=== PATIENT | male | born 1950 | race Caucasian/White ===

== ENCOUNTER 2020-04-15 10:47 | Emergency (ER) | payer MEDICARE, OTHER, SELFPAY ==
--- NOTE | ~2020-04-15 | XR_ITS ---
EXAMINATION: XR chest 2V 04/15/2020 11:39 INDICATION: Chest pain PROCEDURE: 2 view chest COMPARISON: No prior studies for comparison FINDINGS: The lungs are clear. The cardiomediastinal silhouette is within normal limits. There are no pleural effusions. There is no pneumothorax suspected. IMPRESSION: 1: NO ACUTE CARDIOPULMONARY DISEASE. Reviewed, dictated and finalized at location B. RANS ADVISER
[2020-04-15 10:59] VITALS: BP 186/73; PULSE 108; RESP 18; TEMP 36.1; O2SAT 100
--- NOTE | 2020-04-15 10:59 | ECG_ITS ---
Measurements Intervals [place] Rate: 96 P: 65 NE: 135 QRS: 70 QRSD: 90 T: 45 QT: 354 QTc: 449 Interpretive Statements SINUS RHYTHM WITH SINUS ARRHYTHMIA BASELINE ARTIFACT- V1 NORMAL ECG Electronically Signed On 04-15-2020 11:48:45 CERTIFIER by Hank Hines D.O.
[2020-04-15 11:06] LABS: Basophils Absolute Auto 0.1 K/mm3 (0.0-0.1); Basophils Percent Auto 1.2 % (0.2-1.2); Eosinophils Absolute Auto 0.2 K/mm3 (0-0.3); Hematocrit 44.1 % (42.0-52.0); Hemoglobin 15.2 g/dL (14.0-18.0); Immature Granulocyte Absolute 0.03 K/mm3 (0.00-0.031); Immature Granulocyte Percent A 0.5 % (0-0.5); Lymphocytes Absolute Auto 1.87 K/mm3 (0.9-3.2); Lymphocytes Percent Auto 31.5 % (18.3-44.2); Mean Corpuscular HGB Conc 34.5 g/dl (32-36); Mean Corpuscular Hemoglobin 33.3 pg (26-34); Mean Corpuscular Volume 96.5 fl (80-100); Mean Platelet Volume 11.2 fl (7.4-10.4); Monocytes Absolute Auto 0.5 K/mm3 (0.1-0.6); Monocytes Percent Auto 8.9 % (2.6-8.5); Neutrophils Absolute Auto 3.3 K/mm3 (1.3-6.7); Neutrophils Percent Auto 54.9 % (45.5-73.1); Platelet Count Result 223 k/mm3 (150-375); Red Blood Count 4.57 M/mm3 (4.6-6.20); Red Cell Distribution Width 13.2 % (11.5-14.5); White Blood Count 5.9 K/mm3 (4.5-10.0)
[2020-04-15] MEDS: ASPIRIN 81 MG CHEWABLE TABLET 324 MG PO (11:12)
[2020-04-15 11:17] LABS: Partial Thromboplastin Time 28.5 SECONDS (22.3-36.8)
[2020-04-15 11:26] LABS: Prothrombin Time 13.8 Seconds (11.1-14.7)
[2020-04-15 11:33] LABS: Anion Gap 6 mmol/L (8-16); Blood Urea Nitrogen 13 mg/dL (9-20); Carbon Dioxide 29 mmol/L (22-30); Chloride 106 mmol/L (98-107); Estimated CRCL calculation 104 ml/min; Estimated Glomerular Filt Rate > 60; Glucose 118 mg/dL (75-110); Sodium 141 mmol/L (137-145)
[2020-04-15 11:44] LABS: Troponin I < 0.012 ng/mL (0.000-0.034)
[2020-04-15] MEDS: KETOROLAC 30 MG/ML VIAL (*BKC) IV PUSH (11:55)
[2020-04-15 12:09] LABS: D Dimer 0.37 ug/mL (<0.48)
[2020-04-15 12:13] LABS: Alanine Aminotransferase 31 U/L (4-50); Albumin Level 4.2 g/dL (3.5-5.1); Alkaline Phosphatase 66 U/L (38-126); Aspartate Amino Transferase 32 U/L (17-59); Bilirubin,Total 0.5 mg/dL (0.2-1.3); Lipase 119 U/L (23-300)
--- NOTE | 2020-04-15 12:28 | ED.CHESTPAIN ---
HPI - Chest Pain General Chief Complaint: Chest Pain Stated Complaint: Chest Pain Time Seen by Provider: 04/15/20 11:21 Source: patient Mode of arrival: ambulatory Limitations: no limitations History of Present Illness HPI narrative: Patient is a 69-year-old male who presents to emergency department with left-sided chest pain that began today after sneezing pain is worse with leaning forward and movement patient has not taken anything for his symptoms patient notes that he is also had some slight dizziness noting that over a week ago he had developed some dizziness and lightheadedness that is mild in nature and intermittent patient has not taken anything for his symptoms as noted presents in no distress and is resting comfortably in the room without other complaints or concerns at this time denies URI symptoms vomiting diarrhea rectal bleeding or melena or sick contacts Related Data Home Medications Medication Instructions Recorded Confirmed mecobalamin (vitamin B12) 1,000 1,000 mcg SUBLINGUAL DAILY 03/31/19 mcg disintegrating tablet,sublingual omega-3 fatty acids 1,000 mg 1,000 mg PO DAILY 03/31/19 capsule Allergies Allergy/AdvReac Type Severity Reaction Status Date / Time No Known Allergies Allergy Verified 04/15/20 11:07 Review of Systems Review of Systems: All systems reviewed & are unremarkable except as noted in HPI and below PMFSH Past Medical History Medical History (Updated 04/15/20 @ 12:34 by Rashawn Moreira PA-C) HTN (hypertension) Screening cholesterol level Family History Family History Mother Cerebrovascular accident, Onset Age: 80 Social History Social History (Updated 04/15/20 @ 12:29 by Rashawn Moreira PA-C) Smoking status: Never smoker Tobacco type: cigars Alcohol intake: current Exam Narrative: Exam Narrative: GENERAL: Well-appearing, well-nourished, and in no acute distress. HEAD: Normocephalic, atraumatic. EYES: PERRLA and EOMI. ENT: Nares clear, no rhinorrhea or epistaxis. Mucous membranes moist. CHEST: Clear to auscultation. No respiratory distress. No wheezes rales or rhonchi. Reproducible left chest wall tenderness over the left breast HEART: Regular rate and rhythm. No murmur heard. Normal peripheral pulses. ABDOMEN: Soft, nontender, distended EXTREMITIES: Normal range of motion. No edema. SKIN: Warm, dry, no rash. NEURO: No focal deficits. Alert and oriented x3. PSYCH: Normal mood and affect. Course Course Emergency Course: Patient evaluated the emergency department no high risk changes in the evaluation will be discharged home for further evaluation with primary care ABCs and vital signs intact and stable reevaluation's patient has been resting comfortably no distress with reproducible pain Vital Signs Vital signs: Vital Signs Temperature 97.0 F L 04/15/20 10:59 Pulse Rate 108 H 04/15/20 10:59 Respiratory Rate 18 04/15/20 10:59 Blood Pressure 186/73 H 04/15/20 10:59 Pulse Oximetry 100 04/15/20 10:59 Temperature 97.0 F L 04/15/20 10:59 Pulse Rate 108 H 04/15/20 10:59 Respiratory Rate 18 04/15/20 10:59 Blood Pressure 186/73 H 04/15/20 10:59 Pulse Oximetry 100 04/15/20 10:59 MDM - Chest Pain MDM Narrative Medical decision making narrative: Patients EKGs and labs are without significant high risk changes. Cardiac risk factors were reviewed. Patient is felt likely to be low risk for ACS and reasonable for further risk stratification testing as an outpatient. Pain was not sudden or maximal in onset without tearing or ripping. quality. No other signs or symptoms to suggest aortic dissection. A low-risk Wells criteria is noted. PE is felt to be unlikely. No pneumonia or URI symptoms were seen on evaluation today. Patient is felt to b reasonable for continued evaluation as an outpatient. Lab Data Result diagrams: 04/15/20 11:00 04/15/20
[2020-04-15 13:00] VITALS: BP 156/89; PULSE 87; RESP 18; O2SAT 98
[2020-04-15 14:38] LABS: Troponin I 0.013 ng/mL (0.000-0.034)
[2020-04-15 15:12] VITALS: BP 164/87; PULSE 84; RESP 18; O2SAT 100
== END 2020-04-15 15:13 | disposition home or self-care (01) ==
PROVIDERS: Emergency Medicine Emergency Medical Services; Emergency Provider Emergency Medicine; PCP Emergency Medicine
DX: R07.9 Chest pain, unspecified (principal); I10 Essential (primary) hypertension
CPT/HCPCS: 36415; 71046; 80048; 80076; 83690; 84484; 85025; 85380; 85610; 85730; 93005; 96374; 99284; A9270; J1885

== ENCOUNTER 2020-08-03 14:36 | Outpatient (CLI) | payer MEDICARE, OTHER, SELFPAY ==
--- NOTE | ~2020-08-03 | XR_ITS ---
EXAMINATION: XR wrist LT 2V DATE: 08/03/2020 14:47 INDICATION: Radial sided left wrist pain. TECHNIQUE: 2 views of left wrist were obtained. COMPARISON: None. FINDINGS: Bone alignment is normal. No fracture. There is mild osteoarthritis of triscaphe joint and first carpometacarpal joint. IMPRESSION: 1. Mild polyarticular osteoarthritis. Reviewed, dictated and finalized at location A.
== END 2020-08-03 14:37 | disposition home or self-care (01) ==
PROVIDERS: PCP Emergency Medicine; Visit Provider Emergency Medicine
DX: M19.032 Primary osteoarthritis, left wrist (principal)
CPT/HCPCS: 73100

== ENCOUNTER 2021-01-19 01:27 | Day surgery (SDC) | payer MEDICARE, OTHER, SELFPAY ==
[2021-01-04 13:43] VITALS: BMI 30.7
--- NOTE | 2021-01-18 15:18 | PM.HPGS ---
History of Present Illness History of Present Illness Consent: Risks, benefits, and alternatives have been discussed and questions answered. Patient agrees to proceed with procedure. Chief complaint: hx of colon polyps, family hx of colon ca Narrative: Alexandru Stephens Jr. is a 70 year old male referred for colon cancer screening. Review of Systems Review of Systems: All systems reviewed & are unremarkable except as noted in HPI and below PMFSH Past Medical History Medical History HTN (hypertension) Screening cholesterol level Family History Family History Mother Cerebrovascular accident, Onset Age: 80 Social History Social History Smoking status: Former smoker Tobacco type: cigars Alcohol intake: current Drinks per week: 20 Living arrangements: with family Spiritual care concerns: No Meds Home Medications and Allergies Home Medications Medication Instructions Recorded Confirmed Type mecobalamin (vitamin B12) 1,000 1,000 mcg SUBLINGUAL DAILY 03/31/19 01/04/21 History mcg disintegrating tablet,sublingual omega-3 fatty acids 1,000 mg 1,000 mg PO DAILY 03/31/19 01/04/21 History capsule amlodipine 10 mg PO DAILY 01/04/21 01/04/21 History lisinopril 40 mg PO DAILY 01/04/21 01/04/21 History kuivybie-gcn-NX-lycopen-lutein 1 tablet PO DAILY 01/04/21 01/04/21 History [Centrum Silver Men] omeprazole 20 mg PO DAILY 01/04/21 01/04/21 History Allergies Allergy/AdvReac Type Severity Reaction Status Date / Time No Known Allergies Allergy Verified 11/25/20 09:31 Exam Resp: Auscultation: clear to auscultation bilaterally Cardio: Rate: regular rate Rhythm: regular rhythm GI: GI Palp: Yes Soft to palpation and No Tenderness to palpation present (GI) Assessment and Plan Assessment and plan (1) Colon cancer screening: Code(s): Z12.11 - Encounter for screening for malignant neoplasm of colon Status: Acute Assessment and Plan: Colonoscopy with possible biopsy or polypectomy or cautery or injection of substances.
[2021-01-19 07:25] VITALS: BP 168/88; PULSE 77; RESP 20; TEMP 36.4; O2SAT 100; BMI 26.6
[2021-01-19] MEDS: LACTATED RINGERS 1,000 ML 150 ML IV CONT (07:56)
--- NOTE | 2021-01-19 08:10 | WPDANESEPPF ---
Anes - Initial Pre Proc Eval Procedure: Operation Date: 01/19/21 08:30 Proposed Procedures p Screening Colonoscopy - Blake Dubose MD Date/Time: 01/19/21 08:10 Surgeon: Blkae Dubose MD Pre Op Diagnosis: hx of colon polyps, family hx of colon ca Patient Data Age: 70 Gender: M Height: 1.8 m Weight: 86.5 kg Last Vital Signs Temp 36.4 C L 01/19/21 07:25 Pulse 77 01/19/21 07:25 Resp 20 01/19/21 07:25 BP 168/88 H 01/19/21 07:25 Pulse Ox 100 01/19/21 07:25 Allergies Allergy/AdvReac Type Severity Reaction Status Date / Time No Known Allergies Allergy Verified 11/25/20 09:31 Home Medications Medication Instructions Recorded Confirmed Type mecobalamin (vitamin B12) 1,000 1,000 mcg SUBLINGUAL DAILY 03/31/19 01/04/21 History mcg disintegrating tablet,sublingual omega-3 fatty acids 1,000 mg 1,000 mg PO DAILY 03/31/19 01/04/21 History capsule amlodipine 10 mg PO DAILY 01/04/21 01/04/21 History lisinopril 40 mg PO DAILY 01/04/21 01/04/21 History zggoqchq-imz-AR-lycopen-lutein 1 tablet PO DAILY 01/04/21 01/04/21 History [Centrum Silver Men] omeprazole 20 mg PO DAILY 01/04/21 01/04/21 History Patient hx anesthesia problems: none Family hx anesthesia problems: none Results Review: All pre-operative results and documents have been reviewed as part of the pre-operative evaluation. [facility] Past Medical History Medical History HTN (hypertension) Screening cholesterol level Family History Family History Mother Cerebrovascular accident, Onset Age: 80 Social History Social History Smoking status: Former smoker Tobacco type: cigars Alcohol intake: current Drinks per week: 20 Living arrangements: with family Spiritual care concerns: No Anes - Eval Final PreProcedure Day of Procedure 01/19/21 08:10 Patient weight: overweight Heart: regular rate and rhythm Lungs: clear to auscultation and normal air movement Airway: Mallampati scale class II Neurological: alert and oriented Last oral intake: >/= 8 hours ASA classification: II Emergent: no Anesthetic plan: proceed Anesthesia type and monitoring: general GIVS Results Review: All pre-operative results and documents have been reviewed as part of the pre-operative evaluation. Informed Consent: The patient's anesthetic plan and its attendant risks and benefits were discussed with the patient/family/POA. Questions were solicited and answers provided to the satisfaction of the patient/family/POA.
[2021-01-19] MEDS: SIMETHICONE ORAL SUSPENSION 20 MG/0.3 ML 30 ML BOTTLE 0.6 ML IRRIGATION (08:46)
[2021-01-19 09:03] VITALS: BP 118/78; PULSE 74; RESP 21; O2SAT 95
[2021-01-19 09:13] VITALS: BP 123/76; PULSE 65; RESP 16; O2SAT 98
[2021-01-19 09:24] VITALS: BP 138/83; PULSE 65; RESP 20; O2SAT 97
== END 2021-01-19 09:28 | disposition home or self-care (01) ==
PROVIDERS: PCP Emergency Medicine; Visit Provider Internal Medicine Gastroenterology
PROC: 0DJD8ZZ Inspection of Lower Intestinal Tract, Via Natural or Artificial Opening Endoscopic (ICD-10-PCS; CPT 45378; principal; 2021-01-19 08:30)
DX: Z12.11 Encounter for screening for malignant neoplasm of colon (principal); D12.4 Benign neoplasm of descending colon; K57.30 Diverticulosis of large intestine without perforation or abscess without bleeding; Z80.0 Family history of malignant neoplasm of digestive organs; Z87.891 Personal history of nicotine dependence
CPT/HCPCS: 45385; 88305; J2001; J2704; J7120

== ENCOUNTER 2021-01-30 09:56 | Outpatient (CLI) | payer MEDICARE, OTHER, SELFPAY | END 2021-01-30 09:57 | disposition home or self-care (01) | LOC: ANHLAB 09:59 | PROVIDERS: PCP Emergency Medicine; Visit Provider Emergency Medicine | DX: R53.83 Other fatigue (principal) | CPT/HCPCS: 36415; 84443 ==

== ENCOUNTER 2021-04-19 12:57 | Outpatient (CLI) | payer MEDICARE, OTHER, SELFPAY ==
--- NOTE | 2021-04-19 13:38 | ECG_ITS ---
Measurements Intervals [place] Rate: 83 P: 67 MS: 150 QRS: 62 QRSD: 78 T: 25 QT: 381 QTc: 449 Interpretive Statements SINUS RHYTHM BASELINE ARTIFACT- I, II, III, AVR, AVL AVF, V1, V3 NORMAL ECG Electronically Signed On 04-19-2021 14:23:36 CONCRETE BATCHER by Hank Hines D.O.
[2021-04-19 13:59] LABS: Basophils Absolute Auto 0.1 K/mm3 (0.0-0.1); Eosinophils Absolute Auto 0.2 K/mm3 (0-0.3); Eosinophils Percent Auto 2.1 % (0-4.4); Hematocrit 47.1 % (42.0-52.0); Hemoglobin 15.7 g/dL (14.0-18.0); Immature Granulocyte Absolute 0.03 K/mm3 (0.00-0.031); Immature Granulocyte Percent A 0.4 % (0-0.5); Lymphocytes Absolute Auto 1.73 K/mm3 (0.9-3.2); Lymphocytes Percent Auto 23.9 % (18.3-44.2); Mean Corpuscular HGB Conc 33.3 g/dl (32-36); Mean Corpuscular Hemoglobin 33.4 pg (26-34); Mean Corpuscular Volume 100.2 fl (80-100); Mean Platelet Volume 11.9 fl (7.4-10.4); Monocytes Absolute Auto 0.7 K/mm3 (0.1-0.6); Monocytes Percent Auto 9.9 % (2.6-8.5); Neutrophils Absolute Auto 4.6 K/mm3 (1.3-6.7); Neutrophils Percent Auto 62.7 % (45.5-73.1); Platelet Count Result 236 k/mm3 (150-375); Red Cell Distribution Width 13.2 % (11.5-14.5); White Blood Count 7.3 K/mm3 (4.5-10.0)
[2021-04-19 14:07] LABS: Albumin Level 4.5 g/dL (3.5-5.1); Estimated Glomerular Filt Rate > 60; Glucose 131 mg/dL (65-110)
[2021-04-19 14:08] LABS: Urine Cotinine NEGATIVE
[2021-04-19 14:20] LABS: Hemoglobin A1C 5.1 % (<5.7)
== END 2021-04-19 12:58 | disposition home or self-care (01) ==
LOC: ANHSURGERY 13:01
PROVIDERS: PCP Emergency Medicine; Visit Provider Orthopaedic Surgery
DX: Z01.818 Encounter for other preprocedural examination (principal); M17.11 Unilateral primary osteoarthritis, right knee; Z51.81 Encounter for therapeutic drug level monitoring; Z79.899 Other long term (current) drug therapy
CPT/HCPCS: 80307; 82040; 82565; 82947; 83036; 85025; 87081; 93005

== ENCOUNTER 2021-12-21 07:45 | Outpatient (CLI) | payer MEDICARE, OTHER, SELFPAY ==
[2021-12-21 08:53] LABS: Basophils Absolute Auto 0.1 K/mm3 (0.0-0.1); Eosinophils Absolute Auto 0.2 K/mm3 (0-0.3); Eosinophils Percent Auto 2.9 % (0-4.4); Hemoglobin 15.2 g/dL (14.0-18.0); Immature Granulocyte Absolute 0.07 K/mm3 (0.00-0.031); Lymphocytes Absolute Auto 1.84 K/mm3 (0.9-3.2); Lymphocytes Percent Auto 25.3 % (18.3-44.2); Mean Corpuscular HGB Conc 33.8 g/dl (32-36); Mean Corpuscular Hemoglobin 32.5 pg (26-34); Mean Corpuscular Volume 96.2 fl (80-100); Monocytes Absolute Auto 0.7 K/mm3 (0.1-0.6); Monocytes Percent Auto 9.5 % (2.6-8.5); Neutrophils Absolute Auto 4.4 K/mm3 (1.3-6.7); Neutrophils Percent Auto 60.3 % (45.5-73.1); Platelet Count Result 201 k/mm3 (150-375); Red Blood Count 4.68 M/mm3 (4.6-6.20); Red Cell Distribution Width 13.3 % (11.5-14.5); White Blood Count 7.3 K/mm3 (4.5-10.0)
[2021-12-21 09:06] LABS: Urine Cotinine NEGATIVE
[2021-12-21 09:17] LABS: Hemoglobin A1C 5.3 % (<5.7)
[2021-12-21 09:19] LABS: Albumin Level 4.7 g/dL (3.5-5.1); Anion Gap 9 mmol/L (8-16); Blood Urea Nitrogen 12 mg/dL (9-20); Calcium 9.4 mg/dL (8.4-10.2); Carbon Dioxide 28 mmol/L (22-30); Chloride 104 mmol/L (98-107); Estimated Glomerular Filt Rate > 60; Glucose 98 mg/dL (65-110); Potassium 4.7 mmol/L (3.4-5.0); Sodium 141 mmol/L (137-145)
[2021-12-22 12:12] LABS: Alanine Aminotransferase 27 U/L (6-50); Albumin Level 4.6 g/dL (3.5-5.1); Alkaline Phosphatase 75 U/L (38-126); Aspartate Amino Transferase 25 U/L (17-59); Bilirubin,Total 0.5 mg/dL (0.2-1.3)
== END 2021-12-21 07:46 | disposition home or self-care (01) ==
LOC: ANHSURGERY 07:49
PROVIDERS: PCP Internal Medicine; Visit Provider Orthopaedic Surgery
DX: M17.11 Unilateral primary osteoarthritis, right knee (principal); Z01.818 Encounter for other preprocedural examination
CPT/HCPCS: 36415; 80048; 80076; 80307; 82040; 83036; 85025; 86850; 86900; 86901; 87081

== ENCOUNTER 2021-12-26 08:30 | Outpatient (CLI) | payer MEDICARE, OTHER, SELFPAY ==
[2021-12-26 09:08] LABS: INR 1.1; Prothrombin Time 13.3 Seconds (11.1-14.7)
== END 2021-12-26 08:31 | disposition home or self-care (01) ==
PROVIDERS: PCP Internal Medicine; Visit Provider Orthopaedic Surgery
DX: M17.11 Unilateral primary osteoarthritis, right knee (principal)
CPT/HCPCS: 36415; 85610

== ENCOUNTER 2022-01-03 01:01 | Day surgery (SDC) | payer MEDICARE, OTHER, SELFPAY ==
--- NOTE | 2021-12-21 07:55 | PC.NURSE ---
Addendum entered by Cherise Atwood RN 12/21/21 08:11: PT STATES TO STOP FISH OIL 1 WEEK PRIOR PER - LAST DOSE OF TO BE TAKEN ON 12/26/21 Original Note: PRE-OP INSTRUCTIONS, PLEASE READ CAREFULLY - CHECK ON COPY OF LIVING WILL/DPOA FOR HEALTHCARE Report to the Outpatient Waiting Room, entrance under the green pavilion located off [facility], at time _0600_ on date _01/03/22_. Planned Procedure Time: _0730_. PACK A SMALL OVERNIGHT BAG AND LEAVE IN THE CAR ALONG WITH YOUR WALKER Time changes happen often and if your time is changed the preop area will call you the afternoon before. - You and your visitor will be asked to self-screen and do not enter if you have any COVID symptoms. - We encourage only one visitor and NO visitors under age 16 are allowed at this time. Your visitor will receive communication by the phone number that is given day of service. - The patient visitor is requested to social distance or may leave the building when not with patient due to restrictions. - A mask is required within the hospital. -VISITING HOURS 8AM-8PM Patients may have clear liquids (water, carbonated beverages, clear teas, apple juice) until 3 hours prior to surgery (0430 AM) with a maximum of 20 ounces. - No food from midnight until time of surgery Take the following medications with a SIP of water the morning of surgery: _AMLODIPINE,_ Medications to discontinue per ANESTHESIA - _VITAMINS/SUPPLEMENTS - 3 DAYS PRIOR TO SURGERY, Date to take last dose 12/30/21_ Please no make-up, nail turkmen, hairspray, perfume, deodorant, or body powder the day of surgery. No jewelry (including any body piercings) or valuables the day of surgery, leave them at home. Please take a shower or bath the night before, or the morning of, surgery with an antibacterial soap. Wear comfortable, loose fitting clothing. - Jewelry must be removed prior to entering the operating room. Rings and piercings that are not removed may be cut off. - The hospital will not accept responsibility for valuables. - Please leave all valuables, including medications, at home the day of surgery. If you are going home after surgery, a licensed intermodal owner operator truck driver must drive you home. - NO public transportation without another adult. - We recommend that an adult stay with you for 24 hours following discharge. - We also recommend that you do not drive, make important decision, drink alcoholic beverages, or take any drugs that were not prescribed by your health care provider for at least 24 hours after your discharge time. For Pediatric surgeries, we recommend two adults accompany the child home. Follow any additional instructions given to you from your surgeon. If you or anyone in your household have experienced Covid symptoms in the past week, please notify your surgeon or the nurse liaison at the phone number below for possible testing. Instructions given to ____PT and asked if any additional questions and then verbalized understanding. Patient advised to call surgeon office or pre surgery nurse liaison [phone] if any additional questions.
[2021-12-21 08:31] VITALS: BP 166/76; PULSE 82; RESP 20; TEMP 36.3; O2SAT 98; BMI 32.5
--- NOTE | 2022-01-01 15:55 | PM.IMHP ---
H&P: HPI History of Present Illness Date/Time: 01/01/22 15:55 Chief Complaint: Right knee DJD Narrative: 71-year-old male patient of Dr. Hawkins who presents today for a right total knee arthroplasty. He has been having pain in this knee for years. He has severe medial compartment osteoarthritis. He had left total knee done in 2016 which is doing well. He has reached a point where he is having symptoms on a regular basis and would like to proceed with total knee arthroplasty at this point. Review of Systems Review of Systems: All systems reviewed & are unremarkable except as noted in HPI and below PMFSH Past Medical History Medical History (Updated 01/03/22 @ 06:52 by Lorenzo Chicas MD) HTN (hypertension) DANILO (obstructive sleep apnea) Screening cholesterol level Surgical History Surgical History (Updated 01/03/22 @ 06:52 by Lorenzo Chicas MD) History of total knee arthroplasty Family History Family History Mother Cerebrovascular accident, Onset Age: 80 Social History Social History Smoking packs per day: 1 Smoking cigarettes per day: 20.0 Years smoked: 15 Smoking pack-years: 15.00 Smoking status: Former smoker Tobacco type: cigarettes and cigars Second hand tobacco smoke exposure: No Smoking end date: 03/04/94 Additional smoking assessment comments: STATES SMOKER OCCASIONAL CIGAR - LAST CIGAR AUGUST 2021 Alcohol intake: current Drinks per week: 20 Substance use: never Substance use type: does not use Living arrangements: with family Spiritual care concerns: No Meds Home Medications and Allergies Home Medications Medication Instructions Recorded Confirmed Type mecobalamin (vitamin B12) 1,000 1,000 mcg sublingual QAM 03/31/19 01/03/22 History mcg disintegrating tablet,sublingual omega-3 fatty acids 1,000 mg 1,000 mg PO QAM 03/31/19 01/03/22 History capsule (Fish Oil Concentrate) eabofdbv-cjy-asyxu acid 300 1 tablet PO DAILY 01/04/21 01/03/22 History mcg-lycopene 600 mcg-lutein 300 mcg tablet (Centrum Silver Men) lisinopril 40 mg tablet 40 mg PO QAM #90 tabs 05/26/21 01/03/22 Rx omeprazole 20 mg capsule,delayed 20 mg PO QAM #90 caps 05/26/21 01/03/22 Rx release amlodipine 10 mg tablet 10 mg PO QAM #90 tabs 11/10/21 01/03/22 Rx cholecalciferol (vitamin D3) 25 25 mcg PO QAM 12/21/21 01/03/22 History mcg (1,000 unit) capsule Allergies Allergy/AdvReac Type Severity Reaction Status Date / Time No Known Allergies Allergy Verified 01/03/22 06:15 Exam Narrative: 71-year-old male alert pleasant. He is 5 ft 10 228 lb BMI is 32.7. His right knee range of motion is from 3-140 degrees. He has mild effusion. Hip range motion is full without discomfort, negative Stinchfield maneuver. 2+ dorsalis pedis and posterior artery pulse palpable. Normal sensation right lower extremity no edema in either lower extremity. Moderate tenderness over the medial joint line palpation Resp: Auscultation: clear to auscultation bilaterally Cardio: Rate: regular rate Rhythm: regular rhythm Assessment and Plan Assessment and plan (1) Right knee DJD: Code(s): M17.11 - Unilateral primary osteoarthritis, right knee Status: Acute Plan 71-year-old male who has severe medial compartment osteoarthritis the right knee with continued symptoms. Again he is very happy with his left total knee is ready proceed with the right. Surgical procedure as well as risks and complications were discussed in detail all questions were answered and we will proceed. He will see his primary care doctor pre-surgical clearance. He will avoid aspirin ibuprofen products 1 week prior to surgery. We will plan to use Eliquis for DVT prophylaxis. Nasal swab was negative. Hemoglobin 15.2 and platelets are 201. Chem panel was all within normal limits cr
[2022-01-03] VITALS (12 sets, daily range): BP systolic 129–155; BP diastolic 58–92; PULSE 81–90; RESP 10–20; TEMP 36.2–36.9; O2SAT 93–99
--- NOTE | ~2022-01-03 | XR_ITS ---
EXAMINATION: XR knee RT 2V DATE: 01/03/2022 11:35 INDICATION: Right knee arthroplasty. Postop. TECHNIQUE: 2 views of right knee were obtained. COMPARISON: None. FINDINGS: There is a total right knee arthroplasty without patellar resurfacing in near-anatomic alig nment. No fracture. There is gas in the knee joint and soft tissues, consistent with recent surgery. IMPRESSION: 1. Total right knee arthroplasty in near-anatomic alignment. Reviewed, dictated and finalized at location A.
[2022-01-03] MEDS: ACETAMINOPHEN 500 MG TABLET 1000 MG PO ×3 (06:18→20:43)
[2022-01-03] MEDS: LACTATED RINGERS 1,000 ML 30 ML IV CONT ×3 (06:39→12:01)
--- NOTE | 2022-01-03 06:51 | WPDANESEPPF ---
Anes - Initial Pre Proc Eval Procedure: Operation Date: 01/03/22 07:30 Proposed Procedures p Right Total Knee Arthroplasty - Pranav Parks MD Date/Time: 01/03/22 06:52 Surgeon: Pranav Parks MD Pre Op Diagnosis: Rt Knee OA Patient Data Age: 71 Gender: M Height: 1.78 m Weight: 101.7 kg Last Vital Signs Temp 36.2 C L 01/03/22 06:05 Pulse 85 01/03/22 06:05 Resp 16 01/03/22 06:05 BP 148/73 H 01/03/22 06:05 Pulse Ox 99 01/03/22 06:05 O2 Del Method Room Air 01/03/22 06:05 Allergies Allergy/AdvReac Type Severity Reaction Status Date / Time No Known Allergies Allergy Verified 01/03/22 06:15 Home Medications Medication Instructions Recorded Confirmed Type mecobalamin (vitamin B12) 1,000 1,000 mcg sublingual QAM 03/31/19 01/03/22 History mcg disintegrating tablet,sublingual omega-3 fatty acids 1,000 mg 1,000 mg PO QAM 03/31/19 01/03/22 History capsule (Fish Oil Concentrate) gmcrkrpf-ull-fucxd acid 300 1 tablet PO DAILY 01/04/21 01/03/22 History mcg-lycopene 600 mcg-lutein 300 mcg tablet (Centrum Silver Men) lisinopril 40 mg tablet 40 mg PO QAM #90 tabs 05/26/21 01/03/22 Rx omeprazole 20 mg capsule,delayed 20 mg PO QAM #90 caps 05/26/21 01/03/22 Rx release amlodipine 10 mg tablet 10 mg PO QAM #90 tabs 11/10/21 01/03/22 Rx cholecalciferol (vitamin D3) 25 25 mcg PO QAM 12/21/21 01/03/22 History mcg (1,000 unit) capsule Patient hx anesthesia problems: none Family hx anesthesia problems: none Results Review: All pre-operative results and documents have been reviewed as part of the pre-operative evaluation. [facility] Past Medical History Medical History (Updated 01/03/22 @ 06:52 by Lorenzo Chicas MD) HTN (hypertension) DANILO (obstructive sleep apnea) Screening cholesterol level Surgical History Surgical History (Updated 01/03/22 @ 06:52 by Lorenzo Chicas MD) History of total knee arthroplasty Family History Family History Mother Cerebrovascular accident, Onset Age: 80 Social History Social History Smoking packs per day: 1 Smoking cigarettes per day: 20.0 Years smoked: 15 Smoking pack-years: 15.00 Smoking status: Former smoker Tobacco type: cigarettes and cigars Second hand tobacco smoke exposure: No Smoking end date: 03/04/94 Additional smoking assessment comments: [place] SMOKER OCCASIONAL CIGAR - LAST CIGAR AUGUST 2021 Alcohol intake: current Drinks per week: 20 Substance use: never Substance use type: does not use Living arrangements: with family Spiritual care concerns: No Anes - Eval Final PreProcedure Day of Procedure 01/03/22 06:52 Heart: regular rate and rhythm Lungs: clear to auscultation Airway: Mallampati scale class II Neurological: alert and oriented Last oral intake: >/= 8 hours ASA classification: III Emergent: no Anesthetic plan: proceed Anesthesia type and monitoring: general ETT and standard monitoring Results Review: All pre-operative results and documents have been reviewed as part of the pre-operative evaluation. Informed Consent: The patient's anesthetic plan and its attendant risks and benefits were discussed with the patient/family/POA. Questions were solicited and answers provided to the satisfaction of the patient/family/POA.
[2022-01-03] MEDS: TRANEXAMIC ACID 1,000MG/ISO100 1,000 MG/100 ML BAG 200 MG IVPB (07:16)
--- NOTE | 2022-01-03 07:16 | WPDHPUPDATE1 ---
History and Physical Update Update Date/Time: 01/03/22 07:16 History and Physical has been reviewed, including an updated exam of the patient. There are NO changes in the patient's condition. Risks, benefits, and alternatives have been discussed and questions answered. Patient agrees to proceed with procedure.
[2022-01-03] MEDS: ceFAZolin 2 GM/D5W 50 ML 2 GM/50 ML BAG IVPB (07:28)
[2022-01-03] MEDS: ceFAZolin SODIUM 1 GM VIAL 3 GM (08:08)
[2022-01-03] MEDS: GENTAMICIN BONE CEMENT REFOBACIN 1 EACH TOPICAL (08:09)
[2022-01-03] MEDS: TRANEXAMIC ACID 1,000 MG/10 ML AMPUL 1000 MG IV PUSH (10:38)
[2022-01-03] MEDS: ceFAZolin SODIUM 1 GM VIAL 2 GM IV PUSH (10:38)
--- NOTE | 2022-01-03 11:17 | W.PM.PROC2 ---
Procedure Note - Detailed Date of Procedure 01/03/22 Pre-op Diagnosis Rt Knee OA Post-op Diagnosis Same Procedure Performed Right total knee arthroplasty Surgeon Pranav Parks MD [employer] Hostler Joanne Description of Procedure Patient was brought to the operating room and general anesthesia was administered. The right knee was from draped usual fashion. He received 2 g of Ancef weight based vancomycin 1 g of tranexamic acid preoperatively. Limb was exsanguinated tourniquet elevated to 300 mmHg. A 7 in longitudinal midline incision was used and a standard parapatellar arthrotomy was utilized. Infrapatellar and suprapatellar fat pads were excised a quadriceps synovectomy carried out. The patella had normal articular cartilage. There was an inferior osteophyte that was removed otherwise patella had normal contour and cartilage so was elected to treat this with non resurfacing. A minor limited lateral facetectomy was performed. Next a guide niko was inserted down the femoral canal after aspiration of canal contents using the 5 degree valgus cutting bushing 10 mm of bone removed from the distal femur. This removed about 9 medially because of bone wear. Next the tibial plateau was cut. We tried to make a skim cut off the medial tibial plateau and this was accomplished. Flexion gap was very tight with the 8 spacer both medially and laterally therefore an additional 2 mm of bone removed the tibial plateau at this time. I felt that we did not have proper tibial slope and looked like degree of record bottom so we increased the slope a little bit which removed another mm bone from anterior aspect the tibia relative the anterior which seemed give perfect alignment on the tibial cut. Meniscal remnants were excised and the PCL was recessed. Flexion gap measured 9 mm medially 10 mm laterally. We did not release medial capsule as he did not have a varus deformity although he did have [id number] medial compartment osteoarthritis the sizing guide was applied set at 2? of external rotation which was 1 degree past Whitesides line the we joanne the femur. He had no varus slope on his tibia on his preoperative and there was some bone wear in additional full-thickness cartilage loss of the posterior medial femoral condyle. Posterior referencing pinholes were placed and the size 70 vanguard cutting block was applied AP and chamfer cuts were made and this fit appropriately. With the 10 CR insert, I felt we were too tight laterally and we had placed medially at 90? flexion and studying the tibial alignment I felt that we might be in 1 degree of varus and so we reapplied the tibial cutting block carefully removed a mm from lateral side transitioning this to the medial side and we took care to make sure we had a perfectly flat tibial cut surface and no rock on the trial. With this done on read trialing there was 1 mm of play laterally at 90? with CR insert and the seemed appropriate. The tibia was sized to a size 75 which fit line to line posterolateral to anteromedial at the proper rotation this was punched. Trialing with the size 10 mm insert the knee came out to full extension with 2 mm of medial plate 1 mm lateral play negative bounce and had excellent stability to anterior millinery designer all positions gravity flexion to 130. Balance at 90? was 1 mm lateral opening to medial and with a clip arthrotomy medial side tightened down as well. We had put the tourniquet down at 90 minutes and limb was exsanguinated tourniquet we elevated this time. The remaining posterior femoral bone was removed after re-applying the femoral trial. Bony surfaces were prepared with step drill this is bone was dense and step drill holes were made through the bony surfaces thoroughly irrigated and dried. Two batches of methylmethacrylate were mixed with gentamicin powder as a cement was applied 75 tibial component then the size 70 right femoral component CR type and cement applied the tibia pressurized tibial
[2022-01-03] MEDS: fentaNYL CITRATE INJ (*CRX) 100 MCG/2 ML VIAL 25 MCG IV PUSH ×7 (11:26→12:24)
[2022-01-03] MEDS: HYDROmorphone HCL INJ (*CRX) 1 MG/ML SYR 0.5 MG IV PUSH ×3 (11:54→12:13)
--- NOTE | 2022-01-03 13:22 | PM.IMCN ---
HPI Data of Consult Consult date: 01/03/22 Requesting Physician: Pranav Parks MD Primary Care Provider: Christoph Hawkins, DO Consult Narrative Narrative: Alexandru Stephens Jr. is a 71 year old male [facility] Past Medical History Medical History (Updated 01/03/22 @ 06:52 by Lorenzo Chicas MD) HTN (hypertension) DANILO (obstructive sleep apnea) Screening cholesterol level Surgical History Surgical History (Updated 01/03/22 @ 06:52 by Lorenzo Chicas MD) History of total knee arthroplasty Family History Family History Mother Cerebrovascular accident, Onset Age: 80 Social History Social History Smoking packs per day: 1 Smoking cigarettes per day: 20.0 Years smoked: 15 Smoking pack-years: 15.00 Smoking status: Former smoker Second hand tobacco smoke exposure: No Additional smoking assessment comments: STATES SMOKER OCCASIONAL CIGAR - LAST CIGAR AUGUST 2021 Alcohol intake: current Drinks per week: 20 Substance use: never Substance use type: does not use Has the Lack of Transportation Kept You From Medical Appointments or From Getting Medications?: No Within the Past 12 Months, Were You Worried Whether Your Food Would Run Out Before You Got Money to Buy More?: Never True What is Your Housing Situation Today?: I Have Housing Are You Worried That in the Next 2 Months, You May Not Have Your Own Housing to Live In?: No Do You Have Trouble Paying Your Heating Or Electricity Bill?: No Do You Have Trouble Paying For Medicines?: No Are You Currently Unemployed and Looking for Work?: No Highest Level of Education Completed: Don't Know Do You Have Trouble With Childcare or the Care of a Family Member?: No Living arrangements: with family Spiritual care concerns: No Meds Home Medications and Allergies Home Medications Medication Instructions Recorded Confirmed Type mecobalamin (vitamin B12) 1,000 1,000 mcg sublingual QAM 03/31/19 01/03/22 History mcg disintegrating tablet,sublingual omega-3 fatty acids 1,000 mg 1,000 mg PO QAM 03/31/19 01/03/22 History capsule (Fish Oil Concentrate) exvcqhjw-yng-btswj acid 300 1 tablet PO DAILY 01/04/21 01/03/22 History mcg-lycopene 600 mcg-lutein 300 mcg tablet (Centrum Silver Men) lisinopril 40 mg tablet 40 mg PO QAM #90 tabs 05/26/21 01/03/22 Rx omeprazole 20 mg capsule,delayed 20 mg PO QAM #90 caps 05/26/21 01/03/22 Rx release amlodipine 10 mg tablet 10 mg PO QAM #90 tabs 11/10/21 01/03/22 Rx cholecalciferol (vitamin D3) 25 25 mcg PO QAM 12/21/21 01/03/22 History mcg (1,000 unit) capsule Allergies Allergy/AdvReac Type Severity Reaction Status Date / Time No Known Allergies Allergy Verified 01/03/22 06:15 Vital Signs Vital Signs - 24 hr 01/03/22 06:05 01/03/22 11:21 01/03/22 11:35 Temperature 36.2 C L 36.5 C Pulse Rate 85 84 86 Respiratory Rate 16 18 17 Blood Pressure 148/73 H 136/71 129/92 H Pulse Oximetry 99 93 97 Oxygen Delivery Room Air Simple Face Mask Simple Face Mask Oxygen Flow Rate 8 8 01/03/22 11:50 01/03/22 12:10 01/03/22 12:25 Temperature Pulse Rate 90 88 90 Respiratory Rate 12 14 10 L Blood Pressure 133/68 136/68 134/65 Pulse Oximetry 94 94 94 Oxygen Delivery Room Air Room Air Nasal Cannula Oxygen Flow Rate 2
[2022-01-03] MEDS: oxyCODONE HCL (*CRX) 5 MG TAB IR PO ×3 (13:24→23:49)
[2022-01-03] MEDS: SODIUM CHLORIDE 0.9% IV 1,000 ML 125 ML IV CONT (13:24)
--- NOTE | 2022-01-03 13:44 | PM.IMCN ---
Assessment and Plan Assessment and plan (1) History of total right knee replacement: Code(s): Z96.651 - Presence of right artificial knee joint Status: Acute Assessment and Plan: Post-op right total knee arthroplasty day 0 Patient is doing well and does not verbalize any concerns at this point Up to chair regularly Ambulate with assistance Incentive spirometer Q2hr PT/OT per ortho Pain management per ortho DVT prophylaxis per ortho Post op care per ortho Diet: regular CBC and CMP ordered and awaiting results Surgeon prescribed Tylenol PRN for pain and Cefazolin 1 gm in 50 ml IVPB Q8hr 100 mls/hr (2) HTN (hypertension): Qualifiers: Hypertension type: primary hypertension Qualified Code(s): I10 - Essential (primary) hypertension Code(s): I10 - Essential (primary) hypertension Status: Acute Assessment and Plan: Continue home medication (3) DANILO on CPAP: Code(s): G47.33 - Obstructive sleep apnea (adult) (pediatric); Z99.89 - Dependence on other enabling machines and devices Status: Acute Assessment and Plan: Patient brought CPAP from home and will use it over night. HPI Data of Consult Consult date: 01/03/22 Requesting Physician: Pranav Parks MD Primary Care Provider: Christoph Hawkins DO Consult Narrative Narrative: Alexandru Stephens Jr. is a 71 year old male with a history of right knee osteoarthritis that presents post right total knee arthroplasty. Patient has had knee pain for many years and has tried multiple therapies in the past. These therapies include NSAIDs, knee brace, PO steroids, and cortisone injections. The pain progressively got worse and became more consistent, thus deciding to proceed with the total knee arthroplasty. Post arthroplasty the patient is sitting up in bed and does not complain of any pain at this time. He is awake and oriented x3. Review of Systems Review of Systems: All systems reviewed & are unremarkable except as noted in HPI and below PMFSH Past Medical History Medical History HTN (hypertension) DANILO (obstructive sleep apnea) Screening cholesterol level Surgical History Surgical History H/O lateral meniscus repair of right knee History of carpal tunnel release bilateral History of hand surgery right; post fracture History of total knee arthroplasty left History of total right knee replacement Family History Family History Mother Cerebrovascular accident, Onset Age: 80 Father Heart disease Colon cancer Social History Social History (Updated 01/03/22 @ 14:01 by Adriana Hercules PA-C) Social History: patient lives with and has two healthy children. Smoking packs per day: 1 Smoking cigarettes per day: 20.0 Years smoked: 15 Smoking pack-years: 15.00 Smoking status: Former smoker Second hand tobacco smoke exposure: No Additional smoking assessment comments: [place] SMOKER OCCASIONAL CIGAR - LAST CIGAR AUGUST 2021 Alcohol intake: current Drinks per week: 20 Substance use: never Substance use type: does not use Has the Lack of Transportation Kept You From Medical Appointments or From Getting Medications?: No Within the Past 12 Months, Were You Worried Whether Your Food Would Run Out Before You Got Money to Buy More?: Never True What is Your Housing Situation Today?: I Have Housing Are You Worried That in the Next 2 Months, You May Not Have Your Own Housing to Live In?: No Do You Have Trouble Paying Your Heating Or Electricity Bill?: No Do You Have Trouble Paying For Medicines?: No Are You Currently Unemployed and Looking for Work?: No Highest Level of Education Completed: Don't Know Do You Have Trouble With Childcare or the Care of a Family Member?: No
[2022-01-03] MEDS: KETOROLAC 15 MG/ML VIAL (*BKC) IV PUSH ×2 (16:24→20:42)
[2022-01-03] MEDS: SENNA/DOCUSATE SODIUM TABLET 2 TAB PO (17:27)
[2022-01-03 17:36] LABS: Hematocrit 40.5 % (42.0-52.0); Hemoglobin 13.6 g/dL (14.0-18.0); Mean Corpuscular HGB Conc 33.6 g/dl (32-36); Mean Corpuscular Hemoglobin 32.9 pg (26-34); Mean Corpuscular Volume 98.1 fl (80-100); Mean Platelet Volume 11.5 fl (7.4-10.4); Platelet Count Result 222 k/mm3 (150-375); Red Blood Count 4.13 M/mm3 (4.6-6.20); Red Cell Distribution Width 13.1 % (11.5-14.5); White Blood Count 11.2 K/mm3 (4.5-10.0)
[2022-01-03 17:47] LABS: Anion Gap 9 mmol/L (8-16); Blood Urea Nitrogen 10 mg/dL (9-20); Calcium 8.3 mg/dL (8.4-10.2); Carbon Dioxide 24 mmol/L (22-30); Chloride 103 mmol/L (98-107); Estimated CRCL calculation 100 ml/min; Estimated Glomerular Filt Rate > 60; Glucose 125 mg/dL (65-110); Potassium 4.2 mmol/L (3.4-5.0); Sodium 136 mmol/L (137-145)
--- NOTE | 2022-01-03 19:32 | ADMGEN ---
This patient, Alexandru Stephens Jr., was admitted to Medical Room 242-01. Patient/family oriented to hospital policies and general routines including ID bracelet, bed and alarms, visiting hours, pain management, procedures, bathroom and other care routines, personal items, smoking policy, room service/diet, and visiting hours. Information on how to activate the Rapid Response Team has been discussed. Patient/Family are encouraged to report perceived risks to care and to ask questions if they do not understand what they are told or what they should do.
[2022-01-04 00:12] VITALS: BP 115/60; PULSE 87; RESP 16; TEMP 36.4; O2SAT 97
[2022-01-04 01:34] VITALS: BP 123/60; PULSE 78; RESP 14; TEMP 36.6; O2SAT 97
[2022-01-04] MEDS: oxyCODONE HCL (*CRX) 5 MG TAB IR PO ×6 (02:06→13:10)
[2022-01-04] MEDS: ACETAMINOPHEN 500 MG TABLET 1000 MG PO ×3 (02:07→13:10)
[2022-01-04 04:00] VITALS: PULSE 77; O2SAT 98
[2022-01-04 04:29] VITALS: BP 133/80; PULSE 90; RESP 16; TEMP 36.4; O2SAT 98
[2022-01-04 06:05] LABS: Basophils Percent Auto 0.5 % (0.2-1.2); Eosinophils Percent Auto 0.2 % (0-4.4); Hematocrit 35.6 % (42.0-52.0); Hemoglobin 11.6 g/dL (14.0-18.0); Immature Granulocyte Absolute 0.04 K/mm3 (0.00-0.031); Immature Granulocyte Percent A 0.5 % (0-0.5); Lymphocytes Absolute Auto 1.29 K/mm3 (0.9-3.2); Lymphocytes Percent Auto 15.5 % (18.3-44.2); Mean Corpuscular HGB Conc 32.6 g/dl (32-36); Mean Corpuscular Volume 101.4 fl (80-100); Monocytes Absolute Auto 1.1 K/mm3 (0.1-0.6); Monocytes Percent Auto 13.4 % (2.6-8.5); Neutrophils Absolute Auto 5.8 K/mm3 (1.3-6.7); Neutrophils Percent Auto 69.9 % (45.5-73.1); Platelet Count Result 191 k/mm3 (150-375); Red Blood Count 3.51 M/mm3 (4.6-6.20); Red Cell Distribution Width 13.5 % (11.5-14.5); White Blood Count 8.3 K/mm3 (4.5-10.0)
[2022-01-04 06:11] LABS: Anion Gap 10 mmol/L (8-16); Blood Urea Nitrogen 11 mg/dL (9-20); Calcium 7.8 mg/dL (8.4-10.2); Carbon Dioxide 24 mmol/L (22-30); Chloride 103 mmol/L (98-107); Estimated CRCL calculation 88 ml/min; Estimated Glomerular Filt Rate > 60; Glucose 101 mg/dL (65-110); Potassium 3.6 mmol/L (3.4-5.0); Sodium 137 mmol/L (137-145)
--- NOTE | 2022-01-04 07:26 | PM.PNORT ---
Subjective Subjective Date/Time Seen: 01/04/22 07:26 Postop day 1 patient is alert. Afebrile vital signs stable. Neurovascularly he is intact. He is able do a straight leg raise. Dressing is intact and dry. Overall pain is well controlled. He has mild swelling in the knee. He was up overnight to the restroom. He will work with physical therapy today if he continues do well we will plan on discharging him home this afternoon after his IV antibiotics have been completed. Objective Data Vital Signs Vital Signs: Vital Signs - 24 hr 01/03/22 11:21 01/03/22 11:35 01/03/22 11:50 Temperature 36.5 C Pulse Rate 84 86 90 Respiratory Rate 18 17 12 Blood Pressure 136/71 129/92 H 133/68 Pulse Oximetry 93 97 94 Oxygen Delivery Simple Face Mask Simple Face Mask Room Air Oxygen Flow Rate 8 8 01/03/22 12:10 01/03/22 12:25 01/03/22 14:21 Temperature Pulse Rate 88 90 Respiratory Rate 14 10 L Blood Pressure 136/68 134/65 Pulse Oximetry 94 94 Oxygen Delivery Room Air Nasal Cannula Room Air Oxygen Flow Rate 2 01/03/22 12:58 01/03/22 13:21 01/03/22 14:46 Temperature 36.8 C 36.9 C 36.7 C Pulse Rate 86 84 85 Respiratory Rate 16 16 20 Blood Pressure 136/62 147/65 H 155/61 H Pulse Oximetry 95 96 98 Oxygen Delivery Oxygen Flow Rate 01/03/22 15:50 01/03/22 18:26 01/03/22 19:26 Temperature 36.7 C 36.8 C Pulse Rate 86 87 Respiratory Rate 20 16 Blood Pressure 147/58 H 155/66 H Pulse Oximetry 97 98 Oxygen Delivery Room Air Oxygen Flow Rate 01/04/22 00:12 01/03/22 23:40 01/04/22 01:34 Temperature 36.4 C 36.6 C Pulse Rate 87 81 78 Respiratory Rate 16 14 Blood Pressure 115/60 123/60 Pulse Oximetry 97 97 97 Oxygen Delivery Oxygen Flow Rate 01/04/22 04:00 01/04/22 04:29 Temperature 36.4 C Pulse Rate 77 90 Respiratory Rate 16 Blood Pressure 133/80 Pulse Oximetry 98 98 Oxygen Delivery Oxygen Flow Rate Intake/Output Intake/Output: Intake & Output 10/3101/02/22 01/03/22 01/04/22 23:59 23:59 23:59 23:59 Intake Total 1890 1600 Output Total 500 Balance 1890 1100 Meds/Results Medications: Active Medications Generic Name Dose Route Start Last Admin Trade Name Freq PRN Reason Stop Dose Admin Acetaminophen 1,000 mg 01/03/22 14:00 01/04/22 02:07 Acetaminophen 500 Mg Tablet PO 1,000 mg Q6H [facility] Administration Amlodipine Besylate 10 mg 01/04/22 09:00 Amlodipine Besylate 5 Mg Tablet PO QAM [facility] Celecoxib 200 mg 01/04/22 08:00 Celecoxib 200 Mg Capsule PO DAILY@0800 [facility] Cephalexin HCl 500 mg 01/04/22 12:05 Cephalexin 500 Mg Capsule PO 01/11/22 12:04 Q6HR [facility] Cyanocobalamin 1,000 mcg 01/04/22 09:00 Cyanocobalamin 1,000 Mcg Tablet PO 02/03/22 08:59 QAM [facility] Cefazolin Sodium 1 gm in 50 mls @ 100 mls/hr 01/03/22 15:30 01/04/22 00:22 Ancef 1 Gm/D5w 50 Ml Pm IVPB 01/04/22 07:59 Infused Q8H [facility] Infusion Morphine Sulfate 2 mg 01/03/22 12:41 Morphine Sulfate (*Crx) 2 Mg/Ml Inj IV PUSH Q1H PRN Pain Rated 7-10 Multivitamins/Minerals 1 tablet 01/04/22 09:00 Opti-Gen Tab PO DAILY [facility] Naloxone HCl 0.1 mg 01/03/22 12:41 Naloxone Hcl 0.4 Mg/Ml Vial IV PUSH Q2M PRN Opiate Reversal Oxycodone HCl 5 mg 01/03/22 14:00 01/04/22 05:10 Oxycodone Hcl (*Crx) 5 Mg Tab Ir PO 5 mg Q4H LUBA Administration Oxycodone HCl 5 mg 01/03/22 12:41 01/04/22 06:26 Oxycodone Hcl (*Crx) 5 Mg Tab Ir PO 5 mg Q4H PRN Administration Pain Rated 4-10 Pantoprazole Sodium 40 mg 01/04/22 17:00 Pantoprazole 40 Mg Tablet PO DAILY@1700 [facility] Polyethylene Glycol 17 gm 01/04/22 09:00 Polyethylene Glycol 3350 17 Gm Powd.Pack PO QAM [facility] Senna/Docusate Sodium 2 tab 01/03/22 17:00 01/03/22 17:27 Senna/Docusate Sodium Tablet PO 2 tab BID LUBA Administration Vitamin D 1,000 units 01/04/22 09:00 Cholecalciferol 1,000 Units Tablet
--- NOTE | 2022-01-04 07:35 | PM.DS ---
DS: Admitting Diagnosis Discharge Date 01/04 Admitting Diagnosis Right knee DJD DS: Discharge Diagnosis Discharge Diagnosis (1) History of total right knee replacement: Code(s): Z96.651 - Presence of right artificial knee joint Status: Acute Assessment and Plan: 71-year-old male with a right total knee arthroplasty on 01/03. Underwent the procedure without complications. Postoperatively he has been afebrile vital signs are stable. Neurovascularly he is intact. He is weight-bearing as tolerated. He was to the restroom multiple times a day as surgery. Pain overall is well controlled he is on Tylenol as well as oxycodone 5 mg. He is also on Celebrex 200 mg once a day. He is on Eliquis for DVT prophylaxis. Patient will be discharged home on 01/04. He was advised to keep leg elevated at home but to his exercises on regular basis. He has outpatient therapy starting next Saturday. He has also been home on Keflex as well as Senokot MiraLax. Patient was advised any questions or concerns he is to call the office otherwise we will see him at his appointment date DS: Summary Hospital Course Hospital Course: stable Time Spent with Patient Time attestation: Total time spent providing and/or coordinating discharge services: DS: Data Data Completed and Pending Labs on day of discharge: Labs from last 24 hours 01/04/22 01/04/22 01/03/22 05:07 05:07 17:23 WBC 8.3 RBC 3.51 L Hgb 11.6 L Hct 35.6 L MCV 101.4 H MCH 33.0 MCHC 32.6 RDW 13.5 Plt Count 191 MPV 12.0 H Immature Gran % (Auto) 0.5 Neut % (Auto) 69.9 Lymph % (Auto) 15.5 L [place] % (Auto) 13.4 H Eos % (Auto) 0.2 Baso % (Auto) 0.5 Lymph # (Auto) 1.29 [place] # (Auto) 1.1 H Eos # (Auto) 0.0 Baso # (Auto) 0.0 Abs Immat Gran (auto) 0.04 H Absolute Neuts (auto) 5.8 Absolute Nucleated RBC 0.0 Nucleated RBC % 0.0 Sodium 137 136 L Potassium 3.6 4.2 Chloride 103 103 Carbon Dioxide 24 24 Anion Gap 10 9 BUN 11 10 Creatinine 0.80 0.70 Estim Creat Clear Calc 88 100 Estimated GFR > 60 > 60 Glucose 101 125 H Calcium 7.8 L 8.3 L 01/03/22 17:23 WBC 11.2 H RBC 4.13 L Hgb 13.6 L Hct 40.5 L MCV 98.1 MCH 32.9 MCHC 33.6 RDW 13.1 Plt Count 222 MPV 11.5 H Immature Gran % (Auto) Neut % (Auto) Lymph % (Auto) [place] % (Auto) Eos % (Auto) Baso % (Auto) Lymph # (Auto) [place] # (Auto) Eos # (Auto) Baso # (Auto) Abs Immat Gran (auto) Absolute Neuts (auto) Absolute Nucleated RBC Nucleated RBC % Sodium Potassium Chloride Carbon Dioxide Anion Gap BUN Creatinine Estim Creat Clear Calc Estimated GFR Glucose Calcium Discharge Plan Discharge Patient Disposition: Home, Self-Care Discharge Instructions: EVANGELISTA MOSES M[facility], [address] [address] POST-OPERATIVE DISCHARGE INSTRUCTIONS TOTAL KNEE ARTHROPLASTY 1. When resting, lie on back with leg elevated above heart to minimize swelling. Significant swelling could indicate a blood clot and if this occurs call the office (or go to the ER) to have a venous ultrasound. 2. Do exercise 5 times a day. 3. Do not sit with leg down except for meals. 4. Wound Care: Nursing will give additional dressings at discharge. Patient to change dressing at home 1 week from surgery, then maintain until seen in office. 5. May shower with dressing in place. 6. Follow weight bearing status instructions. IMPORTANT: Remember not to sit in the chair for more than 30 minutes at a time. As a rule, during the first 14 days after surgery, only sit in the chair to work on the chair knee bending stretch exercise, for meals or for use of the restroom. Sitting in the chair promotes significant swelling in the knee and leg which will make the knee stiff and more painful and which simulates having a b
[2022-01-04] MEDS: MORPHINE SULFATE (*CRX) 2 MG/ML INJ IV PUSH (08:35)
[2022-01-04] MEDS: OPTI-GEN TAB 1 TABLET PO (08:38)
[2022-01-04] MEDS: polyethylene glycoL 3350 17 GM POWD.PACK PO (08:38)
[2022-01-04] MEDS: CHOLECALCIFEROL 1,000 UNITS TABLET 1000 UNITS PO (08:38)
[2022-01-04] MEDS: CYANOCOBALAMIN 1,000 MCG TABLET 1000 MCG PO (08:38)
[2022-01-04] MEDS: SENNA/DOCUSATE SODIUM TABLET 2 TAB PO (08:38)
[2022-01-04] MEDS: CELECOXIB 200 MG CAPSULE PO (08:38)
[2022-01-04] MEDS: amLODIPine BESYLATE 5 MG TABLET 10 MG PO (08:39)
[2022-01-04] MEDS: APIXABAN 2.5 MG TABLET PO (08:39)
[2022-01-04 10:58] VITALS: BP 119/58; PULSE 98; RESP 16; TEMP 36.4; O2SAT 98
[2022-01-04 11:15] VITALS: O2SAT 94
--- NOTE | 2022-01-04 11:56 | WPDANESPN ---
Anes - Prog Note Post-Op Date/Time: 01/04/22 11:56 Cardiovascular status: normal Respiratory status: normal Airway patency: baseline Mental status: baseline Post-Op hydration status: normal Vital Signs: Last Vital Signs Temp 36.4 C 01/04/22 10:58 Pulse 98 01/04/22 10:58 Resp 16 01/04/22 10:58 BP 119/58 L 01/04/22 10:58 Pulse Ox 94 01/04/22 11:15 O2 Del Method Room Air 01/04/22 11:15 O2 Flow Rate 2 01/03/22 12:25 Pain Score (VAS): 04/13 I/O: Intake & Output 01/03/22 01/04/22 01/04/22 23:59 07:59 15:59 Intake Total 740 1600 240 Output Total 500 Balance 740 1100 240 Laboratory Tests 01/04/22 05:07 01/04/22 05:07 01/03/22 01/03/22 01/04/22 17:23 17:23 05:07 WBC 11.2 H 8.3 RBC 4.13 L 3.51 L Hgb 13.6 L 11.6 L Hct 40.5 L 35.6 L MCV 98.1 101.4 H MCH 32.9 33.0 MCHC 33.6 32.6 RDW 13.1 13.5 Plt Count 222 191 MPV 11.5 H 12.0 H Immature Gran % (Auto) 0.5 Neut % (Auto) 69.9 Lymph % (Auto) 15.5 L [place] % (Auto) 13.4 H Eos % (Auto) 0.2 Baso % (Auto) 0.5 Lymph # (Auto) 1.29 [place] # (Auto) 1.1 H Eos # (Auto) 0.0 Baso # (Auto) 0.0 Abs Immat Gran (auto) 0.04 H Absolute Neuts (auto) 5.8 Absolute Nucleated RBC 0.0 Nucleated RBC % 0.0 Sodium 136 L Potassium 4.2 Chloride 103 Carbon Dioxide 24 Anion Gap 9 BUN 10 Creatinine 0.70 Estim Creat Clear Calc 100 Estimated GFR > 60 Glucose 125 H Calcium 8.3 L 01/04/22 05:07 WBC RBC Hgb Hct MCV MCH MCHC RDW Plt Count MPV Immature Gran % (Auto) Neut % (Auto) Lymph % (Auto) [place] % (Auto) Eos % (Auto) Baso % (Auto) Lymph # (Auto) [place] # (Auto) Eos # (Auto) Baso # (Auto) Abs Immat Gran (auto) Absolute Neuts (auto) Absolute Nucleated RBC Nucleated RBC % Sodium 137 Potassium 3.6 Chloride 103 Carbon Dioxide 24 Anion Gap 10 BUN 11 Creatinine 0.80 Estim Creat Clear Calc 88 Estimated GFR > 60 Glucose 101 Calcium 7.8 L Post-procedural complaints: none Patient Feedback: Patient satisfied with anesthetic care.
--- NOTE | 2022-01-04 11:59 | PM.IMPN ---
Progress Note: A&P Assessment and Plan (1) History of total right knee replacement: Code(s): Z96.651 - Presence of right artificial knee joint Status: Acute Assessment and Plan: Post-op right total knee arthroplasty day 1 Patient is doing well and does not verbalize any concerns at this point Up to chair regularly Ambulate with assistance Incentive spirometer Q2hr PT/OT per ortho Pain management per ortho DVT prophylaxis per ortho Post op care per ortho Diet: regular CBC and CMP did not reveal any acute concerns Surgeon prescribed Tylenol PRN for pain and being sent home with keflex 500 mg Being discharged home by orthopedics (2) HTN (hypertension): Qualifiers: Hypertension type: primary hypertension Qualified Code(s): I10 - Essential (primary) hypertension Code(s): I10 - Essential (primary) hypertension Status: Acute Assessment and Plan: Continue home medication (3) DANILO on CPAP: Code(s): G47.33 - Obstructive sleep apnea (adult) (pediatric); Z99.89 - Dependence on other enabling machines and devices Status: Acute Assessment and Plan: Patient brought CPAP from home and will use it over night. Subjective Date/time seen: 01/04/22 11:59 Interval history: Pt up sitting in chair and is pleasant Review of Systems Review of Systems: All systems reviewed & are unremarkable except as noted in HPI and below Constitutional: Constitutional: Denies fatigue, Denies lethargy and Denies weakness ENT: Denies nasal congestion and Denies nasal discharge Cardiovascular: Cardiovascular: Denies chest pain, Denies pedal edema, Denies leg edema and Denies palpitations Respiratory: Respiratory: Denies chest congestion, Denies cough and Denies dyspnea Gastrointestinal: Gastrointestinal: Denies constipation, Denies heartburn, Denies diarrhea, Denies nausea and Denies vomiting Genitourinary: Genitourinary: Denies hematuria, Denies dysuria, Denies urinary frequency and Denies urinary hesitancy Musculoskeletal: Musculoskeletal: Denies back pain and Denies neck pain Comments: minimal pain and swelling in right knee Neurologic: Denies Abnormal speech present Psychiatric: Psychiatric: Denies no additional psychiatric complaints Exam Const: General: comfortable and no acute distress HENMT: Face/Nose/Sinus: Normal nares present Mouth: Yes moist mucous membranes Eyes: EOM: EOMs intact bilaterally Neck: Neck: supple and no JVD Lymphatic: lymphadenopathy Resp: Effort & Inspection: normal respiratory effort Auscultation: clear to auscultation bilaterally Cardio: Rate: regular rate Rhythm: regular rhythm GI: GI Palp: Yes Soft to palpation Auscultation: normal bowel sounds Skin: General skin exam: normal color Other: Right knee Tegaderm intact. There is minimal swelling and bruising present at this time. Neuro: Speech: normal speech Extrem: General: normal exam except as noted (pt has minimal ROM in right knee) Psych: Mental Status: mental status grossly normal Affect: normal affect Objective Data Vital Signs Vital Signs: Vital Signs - 24 hr 01/03/22 12:10 01/03/22 12:25 01/03/22 14:21 Temperature Pulse Rate 88 90 Respiratory Rate 14 10 L Blood Pressure 136/68 134/65 Pulse Oximetry 94 94 Oxygen Delivery Room Air Nasal Cannula Room Air Oxygen Flow Rate 2 01/03/22 12:58 01/03/22 13:21 01/03/22 14:46 Temperature 98.2 F 98.4 F 98.1 F Pulse Rate 86 84 85 Respiratory Rate 16 16 20 Blood Pressure 136/62 147/65 H 155/61 H Pulse Oximetry 95 96 98 Oxygen Delivery Oxygen Flow Rate 01/03/22 15:50 01/03/22 18:26 01/03/22 19:26 Temperature 98.1 F 98.2 F Pulse Rate 86 87 Respiratory Rate 20 16 Blood Pressure 147/58 H 155/66 H Pulse Oximetry 97 98 Oxygen Delivery Room Air Oxygen Flow Rate 01/04/22 00:12 01/03/22 23:40 01/04/22 01:34 Temperature 97.6 F 97.8 F Pulse Rate 87 81
[2022-01-04] MEDS: CEPHALEXIN 500 MG CAPSULE PO (12:14)
== END 2022-01-04 13:30 | disposition home or self-care (01) ==
LOC: ANHSURGERY 05:52 → ANH2MED 12:43
PROVIDERS: Internal Medicine Critical Care Medicine; PCP Internal Medicine; Visit Provider Orthopaedic Surgery
PROC: (CPT 27447; principal; 2022-01-03 07:30)
DX: M17.11 Unilateral primary osteoarthritis, right knee (principal); I10 Essential (primary) hypertension; G47.33 Obstructive sleep apnea (adult) (pediatric); Z87.891 Personal history of nicotine dependence; Z99.89 Dependence on other enabling machines and devices
CPT/HCPCS: 27447; 36415; 73560; 80048; 85025; 85027; 97110; 97116; 97161; 97165; 97530; 97535; A9270; C1713; C1776; J0171; J0690; J1100; J1170; J1885; J2270; J2405; J2704; J2795; J3010; J3370; J7030; J7120

== ENCOUNTER 2022-09-25 07:01 | Outpatient (CLI) | payer MEDICARE, SELFPAY ==
[2022-09-25 07:32] LABS: Alanine Aminotransferase 23 U/L (6-50); Albumin Level 4.7 g/dL (3.5-5.1); Alkaline Phosphatase 83 U/L (38-126); Anion Gap 8 mmol/L (8-16); Aspartate Amino Transferase 26 U/L (17-59); Bilirubin,Total 0.4 mg/dL (0.2-1.3); Blood Urea Nitrogen 11 mg/dL (9-20); Calcium 8.9 mg/dL (8.4-10.2); Carbon Dioxide 28 mmol/L (22-30); Chloride 103 mmol/L (98-107); Cholesterol 238 mg/dL (0-200); Estimated Glomerular Filt Rate > 60; Glucose 96 mg/dL (65-110); HDL Direct 64 mg/dL; Potassium 4.2 mmol/L (3.4-5.0); Sodium 139 mmol/L (137-145); Triglycerides 69 mg/dL (<150)
[2022-09-25 07:43] LABS: LDL Cholesterol Direct 139 mg/dL
[2022-09-25 09:01] LABS: Prostate Specific Antigen 3.4 ng/mL (< OR = 4.0)
== END 2022-09-25 07:02 | disposition home or self-care (01) ==
LOC: ANHLAB 07:04
PROVIDERS: PCP Nurse Practitioner; Visit Provider Nurse Practitioner
DX: E78.5 Hyperlipidemia, unspecified (principal); Z12.5 Encounter for screening for malignant neoplasm of prostate
CPT/HCPCS: 36415; 80053; 80061; 84153; G0103

== ENCOUNTER 2023-04-03 07:24 | Outpatient (CLI) | payer MEDICARE, SELFPAY ==
[2023-04-03 08:11] LABS: Basophils Absolute Auto 0.1 K/mm3 (0.0-0.1); Basophils Percent Auto 1.1 % (0.2-1.2); Eosinophils Absolute Auto 0.2 K/mm3 (0-0.3); Eosinophils Percent Auto 3.2 % (0-4.4); Hematocrit 45.7 % (42.0-52.0); Hemoglobin 14.9 g/dL (14.0-18.0); Immature Granulocyte Absolute 0.01 K/mm3 (0.00-0.031); Immature Granulocyte Percent A 0.2 % (0-0.5); Lymphocytes Absolute Auto 1.55 K/mm3 (0.9-3.2); Lymphocytes Percent Auto 27.9 % (18.3-44.2); Mean Corpuscular HGB Conc 32.6 g/dl (32-36); Mean Corpuscular Hemoglobin 31.6 pg (26-34); Mean Platelet Volume 12.4 fl (7.4-10.4); Monocytes Absolute Auto 0.6 K/mm3 (0.1-0.6); Monocytes Percent Auto 11.4 % (2.6-8.5); Neutrophils Absolute Auto 3.1 K/mm3 (1.3-6.7); Neutrophils Percent Auto 56.2 % (45.5-73.1); Platelet Count Result 204 k/mm3 (150-375); Red Blood Count 4.71 M/mm3 (4.6-6.20); White Blood Count 5.6 K/mm3 (4.5-10.0)
[2023-04-03 08:39] LABS: Alanine Aminotransferase 30 U/L (6-50); Albumin Level 4.3 g/dL (3.5-5.1); Alkaline Phosphatase 76 U/L (38-126); Anion Gap 6 mmol/L (8-16); Aspartate Amino Transferase 32 U/L (17-59); Bilirubin,Total 0.7 mg/dL (0.2-1.3); Blood Urea Nitrogen 11 mg/dL (9-20); Calcium 9.3 mg/dL (8.4-10.2); Carbon Dioxide 28 mmol/L (22-30); Chloride 105 mmol/L (98-107); Cholesterol 162 mg/dL (0-200); Estimated Glomerular Filt Rate > 60; Glucose 103 mg/dL (65-110); HDL Direct 43 mg/dL; Potassium 3.8 mmol/L (3.4-5.0); Sodium 139 mmol/L (137-145); Triglycerides 160 mg/dL (<150)
[2023-04-03 08:45] LABS: Vitamin D 25 Hydroxy 38.7 ng/mL
[2023-04-03 08:50] LABS: Creatinine Urine 226.6 mg/dL; LDL Cholesterol Direct 90 mg/dL
[2023-04-03 08:55] LABS: MALB Creatinine Ratio 9.5 mg/g (0-30); Microalbumin Urine Random 21.5 mg/L (0-16.7)
== END 2023-04-03 07:25 | disposition home or self-care (01) ==
PROVIDERS: PCP Nurse Practitioner; Visit Provider Nurse Practitioner Family
DX: E55.9 Vitamin D deficiency, unspecified (principal); E78.5 Hyperlipidemia, unspecified; G47.33 Obstructive sleep apnea (adult) (pediatric); I10 Essential (primary) hypertension; Z99.89 Dependence on other enabling machines and devices
CPT/HCPCS: 36415; 80053; 80061; 82043; 82306; 85025

== ENCOUNTER 2023-10-03 07:05 | Outpatient (CLI) | payer MEDICARE, SELFPAY ==
[2023-10-03 08:04] LABS: LDL Cholesterol Direct 85 mg/dL
[2023-10-03 08:11] LABS: Alanine Aminotransferase 31 U/L (6-50); Albumin Level 4.7 g/dL (3.5-5.1); Alkaline Phosphatase 70 U/L (38-126); Anion Gap 13 mmol/L (4-12); Aspartate Amino Transferase 30 U/L (17-59); Bilirubin,Total 0.7 mg/dL (0.2-1.3); Blood Urea Nitrogen 13 mg/dL (9-20); Calcium 8.9 mg/dL (8.4-10.2); Carbon Dioxide 25 mmol/L (22-30); Chloride 104 mmol/L (98-107); Cholesterol 182 mg/dL (0-200); Estimated Glomerular Filt Rate > 60; Glucose 87 mg/dL (65-110); HDL Direct 69 mg/dL; Potassium 4.1 mmol/L (3.4-5.0); Sodium 142 mmol/L (137-145); Triglycerides 144 mg/dL (<150)
[2023-10-03 08:21] LABS: Prostate Specific Antigen 3.4 ng/mL (< OR = 4.0)
== END 2023-10-03 07:06 | disposition home or self-care (01) ==
LOC: ANHLAB 07:08
PROVIDERS: PCP Nurse Practitioner; Visit Provider Nurse Practitioner
DX: E78.5 Hyperlipidemia, unspecified (principal); Z12.5 Encounter for screening for malignant neoplasm of prostate; E55.9 Vitamin D deficiency, unspecified
CPT/HCPCS: 36415; 80053; 80061; 82306; 84153; G0103

== ENCOUNTER 2024-03-11 00:33 | Day surgery (SDC) | payer MEDICARE, SELFPAY ==
[2024-02-18 14:54] VITALS: BMI 31.4
[2024-03-11 06:30] VITALS: BP 154/86; PULSE 87; RESP 18; TEMP 36.1; O2SAT 97; BMI 32.3
[2024-03-11] MEDS: LACTATED RINGERS 1,000 ML 150 ML IV CONT (06:38)
--- NOTE | 2024-03-11 07:19 | P.PNAN_ITS ---
Anes - Initial Pre Proc Eval Procedure: Operation Date: 03/11/24 07:30 Proposed Procedures p Colonoscopy - Sarwat Heath MD Date/Time: 03/11/24 07:19 Surgeon: Sarwat Heath MD Pre Op Diagnosis: Pers. Hx. colon polyps, Fam. hx. colon CA Patient Data Age: 73 Gender: M Height: 1.8 m Weight: 105.1 kg Last Vital Signs Temp 36.1 C L 03/11/24 06:30 Pulse 87 03/11/24 06:30 Resp 18 03/11/24 06:30 BP 154/86 H 03/11/24 06:30 Pulse Ox 97 03/11/24 06:30 O2 Del Method Room Air 03/11/24 06:30 Allergies Allergy/AdvReac Type Severity Reaction Status Date / Time No Known Allergies Allergy Verified 03/11/24 06:27 Home Medications ?Medication ?Instructions ?Recorded ?Confirmed ?Type [id number] 300 mcg-K 60 1 tablet PO DAILY 01/04/21 03/11/24 History mcg-lycop 600 mcg-lutein 300 mcg tablet (Centrum Silver Men) cholecalciferol (vitamin D3) 25 25 mcg PO QAM 12/21/21 03/11/24 History mcg (1,000 unit) capsule mecobalamin (vitamin B12) 1,000 1,000 mcg PO DAILY 04/11/23 03/11/24 History mcg chewable tablet rosuvastatin 10 mg tablet See Rx Instructions .Route 06/20/23 03/11/24 Rx .COMPLEX #90 tabs amlodipine 10 mg tablet 10 mg PO QAM #90 tabs 07/31/23 03/11/24 Rx lisinopril 40 mg tablet See Rx Instructions .Route 10/10/23 03/11/24 Rx .COMPLEX #90 tabs omeprazole 20 mg capsule,delayed See Rx Instructions .Route 10/10/23 03/11/24 Rx release .COMPLEX #90 caps Patient hx anesthesia problems: none Family hx anesthesia problems: none Results Review: All pre-operative results and documents have been reviewed as part of the pre- operative evaluation. COUNTS INCLUDE 234 BEDS AT THE [facility] Past Medical History Medical History FHx: coronary artery disease DANILO (obstructive sleep apnea) HTN (hypertension) Screening cholesterol level Surgical History Surgical History H/O lateral meniscus repair of right knee History of hand surgery right; post fracture History of carpal tunnel release bilateral History of total right knee replacement History of total knee arthroplasty left Family History Family History Mother Cerebrovascular accident, Onset Age: 80 Father Heart disease Colon cancer Social History Social History Social History: patient lives with and has two healthy children. Smoking packs per day: 1.5 Smoking cigarettes per day: 30.0 Years smoked: 20 Smoking pack-years: 30.00 Smoking status: Former smoker Tobacco type: cigarettes and cigars Second hand tobacco smoke exposure: No Additional smoking assessment comments: STATES SMOKER OCCASIONAL CIGAR - LAST CIGAR AUGUST 2021 Alcohol intake: current Drinks per week: 2 Substance use: never Substance use type: does not use Lack of Transportation: No Lack of Food: Never True Current Housing: I Have Housing Concerned About Future Housing: No Difficulty Paying Gas/Electric Bills: No Difficulty Paying for Meds: No Currently Unemployed: No Education: Don't Know Difficulty w/ Childcare or Family Care: No Living arrangements: with family Occupation/Education: retired Additional occupation/education comments: Retired [place] [id number] Gender identity (if verbalized by the patient): Male Spiritual care concerns: No Anes - Eval Final PreProcedure Day of Procedure 03/11/24 07:19 Patient weight: obese Heart: regular rate and rhythm Lungs: clear to auscultation Airway: Mallampati scale class II Neurological: alert and oriented Last oral intake: >/= 8 hours ASA classification: III Emergent: no Anesthetic plan: proceed Anesthesia type and monitoring: general GIVS and standard monitoring Results Review: All pre-operative results and documents have been reviewed as part of the pre- operative evaluation. Informed Consent: The patient's anesthetic plan and its attendant risks and benefits were discussed with the patient/family/POA. Questions were solicited and answers provided to the satisfaction of the patient/family/POA.
--- NOTE | 2024-03-11 07:33 | PM.HPGS ---
History of Present Illness History of Present Illness Consent: Risks, benefits, and alternatives have been discussed and questions answered. Patient agrees to proceed with procedure. Chief complaint: Pers. Hx. colon polyps, Fam. hx. colon CA Narrative: Alexandru Stephens Jr. is a 73 year old male with polyps and colon cancer in father, last colonoscopy 2020 Review of Systems Review of Systems: All systems reviewed & are unremarkable except as noted in HPI and below PMFSH Past Medical History Medical History FHx: coronary artery disease DANILO (obstructive sleep apnea) HTN (hypertension) Screening cholesterol level Surgical History Surgical History H/O lateral meniscus repair of right knee History of hand surgery right; post fracture History of carpal tunnel release bilateral History of total right knee replacement History of total knee arthroplasty left Family History Family History Mother Cerebrovascular accident, Onset Age: 80 Father Heart disease Colon cancer Social History Social History Social History: patient lives with and has two healthy children. Smoking packs per day: 1.5 Smoking cigarettes per day: 30.0 Years smoked: 20 Smoking pack-years: 30.00 Smoking status: Former smoker Tobacco type: cigarettes and cigars Second hand tobacco smoke exposure: No Additional smoking assessment comments: STATES SMOKER OCCASIONAL CIGAR - LAST CIGAR AUGUST 2021 Alcohol intake: current Drinks per week: 2 Substance use: never Substance use type: does not use Lack of Transportation: No Lack of Food: Never True Current Housing: I Have Housing Concerned About Future Housing: No Difficulty Paying Gas/Electric Bills: No Difficulty Paying for Meds: No Currently Unemployed: No Education: Don't Know Difficulty w/ Childcare or Family Care: No Living arrangements: with family Occupation/Education: retired Additional occupation/education comments: Retired [place] [id number] Gender identity (if verbalized by the patient): Male Spiritual care concerns: No Meds Home Medications and Allergies Home Medications ?Medication ?Instructions ?Recorded ?Confirmed ?Type [id number] 300 mcg-K 60 1 tablet PO DAILY 01/04/21 03/11/24 History mcg-lycop 600 mcg-lutein 300 mcg tablet (Centrum Ambrosio Men) cholecalciferol (vitamin D3) 25 25 mcg PO QAM 12/21/21 03/11/24 History mcg (1,000 unit) capsule mecobalamin (vitamin B12) 1,000 1,000 mcg PO DAILY 04/11/23 03/11/24 History mcg chewable tablet rosuvastatin 10 mg tablet See Rx Instructions .Route 06/20/23 03/11/24 Rx .COMPLEX #90 tabs amlodipine 10 mg tablet 10 mg PO QAM #90 tabs 07/31/23 03/11/24 Rx lisinopril 40 mg tablet See Rx Instructions .Route 10/10/23 03/11/24 Rx .COMPLEX #90 tabs omeprazole 20 mg capsule,delayed See Rx Instructions .Route 10/10/23 03/11/24 Rx release .COMPLEX #90 caps Allergies Allergy/AdvReac Type Severity Reaction Status Date / Time No Known Allergies Allergy Verified 03/11/24 06:27 Vital Signs Vital Signs - 24 hr 03/11/24 06:30 Temperature 96.9 F L Pulse Rate 87 Respiratory Rate 18 Blood Pressure 154/86 H Pulse Oximetry 97 Oxygen Delivery Room Air Exam Const: General: comfortable and no acute distress HENMT: Face/Nose/Sinus: Normal nares present Eyes: General: appearance normal, both eyes and all related structures Neck: Neck: no JVD Resp: Auscultation: clear to auscultation bilaterally Cardio: Rate: regular rate Rhythm: regular rhythm GI: Inspection: non-distended GI Palp: Yes Soft to palpation Skin: General skin exam: normal color Neuro: General: gait normal Speech: normal speech Extrem: General: normal to inspection Psych: Mental Status: mental status grossly normal Assessment and Plan Assessment and plan (1) Family history of colon cancer: Code(s): Z80.0 - Family history of malignant neoplasm of digestive organs Status: Acute Assessment and Plan: colonoscopy (2) History of colon polyps: Code(s): Z86.010 - Personal history of colon polyps Status: Acute
[2024-03-11 07:57] VITALS: BP 116/49; PULSE 79; RESP 18; O2SAT 100
[2024-03-11 08:07] VITALS: BP 109/62; PULSE 72; RESP 20; O2SAT 97
[2024-03-11 08:17] VITALS: BP 120/70; PULSE 73; RESP 20; O2SAT 98
== END 2024-03-11 08:30 | disposition home or self-care (01) ==
PROVIDERS: PCP Nurse Practitioner; Referring Provider Family Medicine; Visit Provider Internal Medicine Gastroenterology
PROC: 0DJD8ZZ Inspection of Lower Intestinal Tract, Via Natural or Artificial Opening Endoscopic (ICD-10-PCS; CPT 45378; principal; 2024-03-11 07:30)
DX: Z12.11 Encounter for screening for malignant neoplasm of colon (principal); D12.2 Benign neoplasm of ascending colon; D12.4 Benign neoplasm of descending colon; D12.3 Benign neoplasm of transverse colon; K63.5 Polyp of colon; K64.8 Other hemorrhoids; K57.30 Diverticulosis of large intestine without perforation or abscess without bleeding; I10 Essential (primary) hypertension; G47.33 Obstructive sleep apnea (adult) (pediatric); E66.9 Obesity, unspecified; Z68.32 Body mass index [BMI] 32.0-32.9, adult; Z98.890 Other specified postprocedural states; Z87.891 Personal history of nicotine dependence; Z80.0 Family history of malignant neoplasm of digestive organs; Z82.49 Family history of ischemic heart disease and other diseases of the circulatory system
CPT/HCPCS: 45385; 88305; J2003; J2704; J7120

== ENCOUNTER 2024-03-16 08:11 | Outpatient (CLI) | payer MEDICARE, SELFPAY ==
[2024-03-16 09:13] LABS: Alanine Aminotransferase 30 U/L (6-50); Albumin Level 4.4 g/dL (3.5-5.1); Alkaline Phosphatase 75 U/L (38-126); Anion Gap 8 mmol/L (4-12); Aspartate Amino Transferase 27 U/L (17-59); Bilirubin,Total 0.6 mg/dL (0.2-1.3); Blood Urea Nitrogen 10 mg/dL (9-20); Calcium 9.1 mg/dL (8.4-10.2); Carbon Dioxide 27 mmol/L (22-30); Chloride 105 mmol/L (98-107); Cholesterol 184 mg/dL (0-200); Estimated Glomerular Filt Rate > 60; Glucose 86 mg/dL (65-110); HDL Direct 60 mg/dL; Potassium 4.2 mmol/L (3.4-5.0); Sodium 140 mmol/L (137-145); Triglycerides 127 mg/dL (<150)
[2024-03-16 09:25] LABS: LDL Cholesterol Direct 86 mg/dL
== END 2024-03-16 08:12 | disposition home or self-care (01) ==
LOC: ANHLAB 08:13
PROVIDERS: PCP Nurse Practitioner; Visit Provider Nurse Practitioner
DX: E78.5 Hyperlipidemia, unspecified (principal); I10 Essential (primary) hypertension
CPT/HCPCS: 36415; 80053; 80061

== ENCOUNTER 2024-09-17 07:18 | Outpatient (CLI) | payer MEDICARE, SELFPAY ==
--- OUTSIDE RECORDS SUMMARY | 2024-09-17 07:20 | XMS_ITS | Data Portability ---
Author Organization [place] [facility] [employer], Main Office Address [address] [place] [address] Care Team Providers Care Media Account Executive Name Role Phone MISHAKARINAIN Primary Care Provider [phone] MISHAKARINAIN Referring Provider [phone] Assessment Encounter Date Assessment Date Assessment LastModified by Organization Details LastModified Time 01/07/2023 01/07/2023 HPI: Patient returns. He is 1 year out from right total knee arthroplasty and 7 years out from left total arthroplasty done by Dr. Aburto on the left. Both of his knees are doing well. He still notices weather changes on the right knee but relatively mild. He is very happy with both his knee replacements. Physical exam: 72-year-old male alert pleasant. He walks very well today without limp or for assistance. He has no effusion in either knee. Range of motion is from 0-135 degrees bilaterally. He has excellent stability in both flexion and extension in both knees. No swelling in either lower extremity. 2+ posterior artery pulse in both ankles. Impression: Patient's total knee arthroplasties are doing well at this point. He has excellent range of motion stability in both of them. He is happy with his results. Long-term risk of infection was discussed. At this point we will see him back in 5 years for routine x-ray surveillance or sooner if he has problems. 20 minutes was spent in treatment patient more than half of this in [id number] conversation [email or web address] Not available 01/07/2023 15:26:25 Plan of Treatment Reminders Order Date Submit Date Provider Last Modified By Organization Details Last Modified Time Details Appointments None record ed. Lab None record ed. Referral None record ed. Procedures None record ed. Surgeries None record ed. Imaging XR, knee 023 01/08/20 23 [email or web address] [facility] [place], [address], [place], [address], 3 07:44:24 Medication Orders None record ed. Patient TargetsNo targets recorded. Patient InstructionsNo instructions recorded. Reason for Referral None Reported. Results Created Date Observation Date Name Description Value Unit Range Abnormal Flag Note LastModifiedBy Organization Detail LastModifiedTime 01/04/20 22 01/03/2022 XR, knee No observ ation record ed. [id number] [facility] [address], [place], [address], 05/02/2022 12:58:34 02/15/20 22 XR, knee No observ ation record ed. [id number] [facility] [place] [address], [place], [address], 05/02/2022 12:58:34 01/08/20 23 XR, knee No observ ation record ed. [email or web address] [facility] [place] [address], [place], [address], 01/07/2023 15:24:57 Result Notes None recorded. Problems Name Problem SNOMED Code Status Onset Date Resolution Date Notes Provider Name and Address Organization Details Recorded Time Osteoarthr itis of knee 735820192 Active Not Available [facility] 3 12:52:22 Osteoarthr itis 901271601 Active Not Available [facility] 3 12:52:22 Disorder of bursa of shoulder region 56358439 Active Not Available [facility] 3 12:52:22 Arthritis of right knee 6478563134412 102 Active 2020 Not Available [facility] 3 12:52:21 Problem Notes None recorded. Procedures Surgical History Date Name Laterality Status Provider Name and Address Organization Details Recorded Time Carpal tunnel completed Not Available [facility] 05/02/2022 12:48:08 Knee Surgery completed [facility] 05/02/2022 12:48:08 Imaging Results None recorded. Procedure Notes None recorded. Medical Equipment None Reported. Medications Name Sig Start Date Stop Date Status Note LastModified by Organization Details LastModified Time celecoxib 200 mg capsule 02/14 completed Not Available Not Available Not Available prednisone 10 mg tablet 12/18 completed Not Available Not Available Not Available bupivacaine HCl 0.5 % (5 mg/mL) injection solution Take 20 mg by injection route. 09/19 completed Not Available Not Available Not Available prednisone 10 mg tablets in a dose pack Take 1 tab by mouth, 3 times a day for 3 daysTake 1 tab by mouth 2 times a day for 2 daysTake 1 tab by mouth once a day for 1 day 12/18 completed Not Available Not Available Not Available Kenalog 10 mg/mL suspension for injection In office injection administe red by the provider 12/18 completed [facility]: 0003- 0494- 20 Not Available Not Available Not Available amlodipine 10 mg tablet Take 1 tablet every day by oral route. active Not Available Not Available No t Available cephalexin 500 mg capsule 01/07 completed Not Available Not Available Not Available lisinopril 10 mg tablet Take 1 tablet every day by oral route. 01/07 completed Not Available Not Available Not Available omeprazole 20 mg capsule,del ayed release Take 1 capsule every day by oral route. active Not Available Not Available No t Available diclofenac sodium 75 mg tablet,nikki yed release Take 1 tablet twice a day by oral route. 09/19 completed Not Available Not Available Not Available lisinopril 40 mg tablet Take 1 tablet every day by oral route. active Not Available Not Available No t Available oxycodone 5 mg tablet take 1 tablet PO Q 4hr prn pain 01/07 completed Not Available Not Available Not Available Vitamin D3 25 mcg (1,000 unit) capsule Take by oral route. 2018 active Not Available Not Available Not Avai lable rosuvastati n 10 mg tablet active Not Available Not Available Not Available chlorhexidi ne gluconate 0.12 % mouthwash active Not Available Not Available No t Available Fish Oil 01/15 completed Not Available Not Available Not Available Centrum Silver 2018 active Not Available Not Available Not Avai lable lidocaine (PF) 10 mg/mL (1 %) injection solution In office injection administe red by the provider 06/01 completed [facility]: 0409- 4276- 17 Not Available Not Available Not Available lidocaine (PF) 5 mg/mL (0.5 %) injection solution In office injection administe red by the provider 12/18 completed Not Available Not Available Not Available Zostavax (PF) 19,400 unit/0.65 mL subcutaneou s suspension 12/09 completed Not Available Not Available Not Available Eliquis 2.5 mg tablet 01/31 completed Not Available Not Available Not Available Fluvirin 0991-3983 45 mcg (15 mcg x 3)/0.5 mL intramuscul ar suspension 12/09 completed Not Available Not Available Not Available Fluvirin 3111-3742 45 mcg (15 mcg x 3)/0.5 mL intramuscul ar suspension 12/09 completed Not Available Not Available Not Available Fluvirin 4368-2528 45 mcg (15 mcg x 3)/0.5 mL intramuscul ar suspension 12/09 completed Not Available Not Available Not Available cyanocobala min (vit B-12) 1,[address] by sublingua l route. 2018 active Not Available Not Available Not Avai lable Vitals Date Recorded Body mass index (BMI) Body height Body weight Provider Name and Address Organization Details Last Updated DateTime 12/18/2021 32.7 kg/m2 177.8 cm 045152.06 g Not Available [facility] 05/02/2022 12:50:28 Date Recorded Body height Provider Name an d Address Organization Details Last Updated DateTime 01/07/2023 177.8 cm RODRIGO [facility] 01/07/2023 14:46:34 Date Recorded Body mass index (BMI) Body height Body weight Provider Name and Address Organization Details Last Updated DateTime 01/15/2022 32 kg/m2 177.8 cm 072741.1 g Not Available [facility] 05/02/2022 12:50:28 Date Recorded Body height Provider Name an d Address Organization Details Last Updated DateTime 01/31/2022 177.8 cm Not Available [facility] 03/01/202 3 12:50:27 Date Recorded Body height Provider Name an d Address Organization Details Last Updated DateTime 02/14/2022 177.8 cm Not Available [facility] 12:50:27 Social History None recorded. Functional Status Question Answer Note LastModified by Organizat ion Details LastModified Time What is your level of alcohol consumption? Heavy [id number] Information not available 05/02/2022 Mental Status None recorded. Family History Relationship Description Onset Age of this Age Resolved Age Notes LastModified by Organization Details LastModified Time Unspecified Relation Heart disease [id number] Not available 05/02/2022 12:48:10 Unspecified Relation Family history of stroke [id number] Not available 05/02/2022 12:48:10 Unspecified Relation Family history of malignant neoplasm [id number] Not available 05/02/2022 12:48:10 Unspecified Relation Essential hypertension [id number] Not available 05/02/2022 12:48:10 Medical History Condition Response BLINDNESS N KIDNEY STONES N MRSA N CARPAL TUNNEL SYNDROME N LUNG DISEASE/DISORDER N HISTORY OF DRUG ABUSE N RADIATION / CHEMOTHERAPY N COPD N SPORTS INJURY N ANKLE PAIN N BLOOD DISEASES N SCHIZOPHRENIA N SHINGLES N SHOULDER PAIN N DEPRESSION (INCLUDING POST ) N BOWEL PROBLEMS N STROKE/TIA N ULCERS N KNEE PAIN N BENIGN PROSTATIC HYPERPLASIA N OBESITY N GERD/NAUSEA N ANEURYSM N URINARY/BLADDER/KIDNEY PROBLEMS N CORONARY ARTERY DISEASE (CAD) N ADDICTION CONCERNS N USE OF BLOOD THINNERS N SKIN PROBLEMS N EMPHYSEMA N MUSCLE,JOINT OR BONE PROBLEMS N DVT N STOMACH ULCERS N BLOOD CLOTS N USE OF NSAIDS N CONCUSSION OR SPINAL TRAUMA N NEUROPATHY N AIDS/HIV N FRACTURES N HYPERTENSION N ELBOW PAIN N TOURETTE'S N Metal allergy N ANXIETY DISORDER N BLOOD TRANSFUSION N ANEMIA/BLOOD DISORDER N BIPOLAR DISORDER N BRONCHITIS N OSTEOARTHRITIS N TUBERCULOSIS N FOOT PROBLEM N HEART VALVE DISORDERS N SOFT TISSUE INJURY N ALLERGIES/HAYFEVER N INFECTIOUS DISEASE N HEART ARRHYTHMIA N INSOMNIA N RHEUMATOID ARTHRITIS N HIGH CHOLESTEROL / HYPERLIPIDEMIA N EDEMA N CHRONIC PAIN SYNDROME N CAROTID BLOCKAGE N BACK / NECK PROBLEMS N HAVE YOU BEEN HOSPITALIZED OR SEEN IN [facility] IN THE PAST YEAR ? N BURSITIS N HERNIATED DISC N DIALYSIS N FIBROMYALGIA N OSTEOPOROSIS N ARTHRITIS Y NO SIGNIFICANT PAST MEDICAL HISTORY N PERIPHERAL NEUROPATHY N DIABETES, TYPE N HEARTBURN / REFLUX N HEPATITIS / LIVER DISEASE N GOUT N SLEEP DISORDER N ALZHEIMER'S DISEASE N HERPES N SEIZURES/EPILEPSY N HEADACHES/MIGRAINES N VASCULAR DISEASE N HIP PAIN N Blood Disorder N DIZZINESS N HEAD TRAUMA OR INJURY N HEART DISEASE/HEART PROBLEMS N MULTIPLE SCLEROSIS N CARDIAC ARRHYTHMIA N CANCER: SPECIFY N ANESTHESIA COMPLICATIONS N ATRIAL FIBRILLATION N AUTOIMMUNE DISEASE N Past Encounters Encounter ID Performer Location Encounter Start Date Encounter Closed Date Diagnosis/Indication Diagnosis SNOMED-CT Code Diagnosis ICD10 Code Diagnosis Note [id number] Moy Wright MD [facility] [place] [address] [place] [address] 05/26/2020 00:00:00 06/15/2020 11:36:48 [id number] Moy Wright MD [facility] [place] [address] [place] [address] 10/06/2020 00:00:00 10/06/2020 12:30:13 [id number] Moy Wright MD [facility] [place] [address] [place] [address] 01/10/2021 00:00:00 01/10/2021 14:34:40 [id number] Moy Wright MD [facility] [place] [address] [place] [address] 06/01/2021 00:00:00 06/01/2021 10:33:26 [id number] Pranav Parks MD [facility] [place] [address] [place] [address] 09/19/2021 00:00:00 09/19/2021 15:46:03 [id number] Pranav Parks MD [facility] [place] [address] [place] [address] 12/18/2021 00:00:00 12/18/2021 14:46:24 [id number] Pranav Parks MD [facility] [place] [address] [place] [address] 01/15/2022 00:00:00 01/19/2022 08:19:52 [id number] Pranav Parks MD [facility] [place] [address] [place] [address] 01/31/2022 00:00:00 01/31/2022 10:14:13 [id number] Pranav Parks MD [facility] [place] [address] [place] [address] 02/14/2022 00:00:00 02/14/2022 10:20:53 [id number] Pranav Parks MD [facility] [place] [address] [place] [address] 01/07/2023 14:36:09 01/07/2023 15:40:46 History of bilateral total knee replacement 5811785105 528991 Z96.653 Health Concerns Section Related Observation LastModified by Organization Detai ls LastModified Time None Recorded Concern Status LastModified by Organization Details LastModified Time None Recorded Advance Directives Directive None Recorded Payers Insurance Date Sequence Insurance Name Policy Number Policy Kimble Covered Member ID Kimble Member ID Guarantor Name 01/07/2023 1 [place] Alexandru Stephens Jr [id number] Alexandru Stephens 01/07/2023 2 [facility] (POS II) [id number] Alexandru Stephens [id number] Alexandru Stephens 01/14/2023 1 [facility] (MEDICARE REPLACEMENT/A DVANTAGE - PPO) [id number] Alexandru Stephens [id number] Alexandru Stephens
--- OUTSIDE RECORDS SUMMARY | 2024-09-17 07:20 | XMS_ITS | Continuity of Care Document ---
Author Organization [facility] Address [address] [facility] [address] [place] [address] Phone Care Team Providers Care Large Animal Husbandry Technician Name Role Phone Bruno Lion DO Unavailable Unavailable Advance Directives Directive Yes / No Effective Date File Name No Information Encounters Encounter Description Practice Location Reason(s) For Visit Diagnoses Date Provider Providers Copied on Encounter [facility], [address], [place], [place], [id number], tel:[phone] [facility] No Information Ayad Tijerina. [address] [place], [address], . tel: [phone] Family History Family Member Type Diagnosis Age At Onset No Information Payers Payer name Insurance type Covered green party ID Rosy eduardo(s) [employer] [id number] Social History Type Description Quantity Date Captured Comments Sex Male Smoking Status No Information Chief Complaint And Reason For Visit No Information Reason For Referral Reason For Referral No Information History Of Present Illness Encounter Date Complaint History Of Prese nt Illness No Information Functional Status Date Functional Assessmen t No Information Instructions Date Instruction Additional Infor mation No Information Assessments Type Assessment Date No Information Patient Care Teams Name Effective Dates (start - stop) Status Members No Information
[2024-09-17 07:55] LABS: Hematocrit 42.0 % (42.0-52.0); Hemoglobin 14.1 g/dL (14.0-18.0); Mean Corpuscular HGB Conc 33.6 g/dl (32-36); Mean Corpuscular Hemoglobin 32.0 pg (26-34); Mean Corpuscular Volume 95.5 fl (80-100); Platelet Count Result 191 k/mm3 (150-375); Red Blood Count 4.40 M/mm3 (4.6-6.20); White Blood Count 5.5 K/mm3 (4.5-10.0)
[2024-09-17 08:17] LABS: Alanine Aminotransferase 25 U/L (6-50); Albumin Level 4.4 g/dL (3.5-5.1); Alkaline Phosphatase 79 U/L (38-126); Anion Gap 9 mmol/L (4-12); Aspartate Amino Transferase 35 U/L (17-59); Bilirubin,Total 0.4 mg/dL (0.2-1.3); Blood Urea Nitrogen 14 mg/dL (9-20); Calcium 9.2 mg/dL (8.4-10.2); Carbon Dioxide 24 mmol/L (22-30); Chloride 106 mmol/L (98-107); Cholesterol 192 mg/dL (0-200); Estimated Glomerular Filt Rate > 60; Glucose 93 mg/dL (65-110); HDL Direct 65 mg/dL; Potassium 4.0 mmol/L (3.4-5.0); Sodium 139 mmol/L (137-145); Total Protein 7.6 g/dL (6.3-8.2); Triglycerides 178 mg/dL (<150)
[2024-09-17 09:01] LABS: Prostate Specific Antigen 4.0 ng/mL (< OR = 4.0)
== END 2024-09-17 07:19 | disposition home or self-care (01) ==
LOC: ANHLAB 07:18
PROVIDERS: PCP Nurse Practitioner; Visit Provider Nurse Practitioner
DX: K21.9 Gastro-esophageal reflux disease without esophagitis (principal); E78.5 Hyperlipidemia, unspecified; Z12.5 Encounter for screening for malignant neoplasm of prostate
CPT/HCPCS: 36415; 80053; 80061; 84153; 85027; G0103